=== PATIENT | female | born 1995 | race Caucasian/White ===

== ENCOUNTER 2016-06-19 20:57 | Emergency (ER) | payer MEDICAID ==
[2016-06-19] MEDS ORDERED: SODIUM CHLORIDE 0.9% 1,000 ML IV ONE ×2 (21:11→21:47)
[2016-06-19] MEDS ORDERED: ONDANSETRON 4 MG/2 ML VIAL IVP STA (21:35)
[2016-06-19] MEDS ORDERED: KETOROLAC 60 MG/2 ML VIAL IVP STA (21:35)
[2016-06-19] MEDS ORDERED: levoFLOXacin 250 MG TABLET PO STA (21:43)
[2016-06-19] MEDS ORDERED: KETOROLAC 30 MG/ML VIAL ONE (21:47)
[2016-06-19] MEDS ORDERED: ONDANSETRON 4 MG/2 ML VIAL ONE (21:47)
[2016-06-19] MEDS ORDERED: levoFLOXacin 250 MG TABLET PO ONE (21:47)
== END 2016-06-19 23:03 | disposition home or self-care (01) ==
DX: N12 Tubulo-interstitial nephritis, not specified as acute or chronic (principal); K21.9 Gastro-esophageal reflux disease without esophagitis
CPT/HCPCS: 36415; 71020; 80053; 80306; 81001; 81025; 83605; 83690; 84443; 85025; 87040; 87077; 87086; 87181; 96361; 96374; 96375; 99283; 99284; A9270

== ENCOUNTER 2016-06-22 14:15 | Outpatient (CLI) | payer MEDICAID | END 2016-06-22 14:16 | disposition home or self-care (01) | DX: Z11.3 Encounter for screening for infections with a predominantly sexual mode of transmission (principal) ==

== ENCOUNTER 2016-10-16 20:37 | Outpatient (CLI) | payer SELFPAY ==
[2016-10-16 19:15] LABS: H. PYLORI IGG ANTIBODY Negative (Negative); HPYLORI NEG QC Negative (Negative); HPYLORI POS QC POSITIVE (Positive)
[2016-10-16 19:16] LABS: BASOPHILS # (AUTO) 0.2 10^3/uL (0.0-0.1); BASOPHILS % (AUTO) 2.9 %; EOSINOPHILS % (AUTO) 0.2 %; HCT - HEMATOCRIT 38.4 % (37.0-47.0); HGB - HEMOGLOBIN 12.9 g/dL (12.0-16.0); LYMPHOCYTES # (AUTO) 1.1 10^3/uL (1.5-3.5); LYMPHOCYTES % (AUTO) 19.5 %; MEAN CORPUSCULAR HEMOGLOBIN 29.5 pg (27.0-31.0); MEAN CORPUSCULAR HGB CONC 33.6 g/dL (32.0-36.0); MEAN CORPUSCULAR VOLUME 87.9 fL (81.0-99.0); MEAN PLATELET VOLUME 8.5 fL (7.9-10.8); MONOCYTES # (AUTO) 0.4 10^3/uL (0.0-1.0); MONOCYTES % (AUTO) 7.4 %; NEUTROPHILS # (AUTO) 3.9 10^3/uL (1.5-6.6); NUCLEATED RED BLOOD CELLS AUTO 0.1 /100WBC; RED BLOOD COUNT 4.37 10^6/uL (4.20-5.40); RED CELL DISTRIBUTION WIDTH 13.6 % (12.0-15.0); UNCORRECTED WHITE BLOOD COUNT 5.5 x10^3/uL; WHITE BLOOD COUNT 5.5 x10^3/uL (4.8-10.8)
[2016-10-16 19:27] LABS: ALBUMIN/GLOBULIN RATIO 1.5 (1.0-2.2); BILIRUBIN,TOTAL 0.5 mg/dL (0.2-1.0); BUN - BLOOD UREA NITROGEN 14 mg/dL (6-20); CALCIUM 9.2 mg/dL (8.5-10.3); CARBON DIOXIDE - CO2 24 mmol/L (21-32); CHLORIDE 108 mmol/L (101-111); CHOL/HDL RATIO 2.7 (<4.4); CHOLESTEROL 141 mg/dL; CREATININE 0.7 mg/dL (0.4-1.0); GFR - MDRD 107 (>89); GLUCOSE 110 mg/dL (70-100); HDL CHOLESTEROL 53 mg/dL; LDL/HDL RATIO 1.2 (<4.4); POTASSIUM 4.2 mmol/L (3.5-5.0); SODIUM 139 mmol/L (135-145); TOTAL PROTEIN 7.7 g/dL (6.7-8.2); TRIGLYCERIDES 122 mg/dL; VLDL CHOLESTEROL 24 mg/dL
== END 2016-10-16 20:38 | disposition home or self-care (01) ==
LOC: LAB.N 20:37
PROVIDERS: ATTEND Physician Assistant
DX: M25.50 Pain in unspecified joint (principal)
CPT/HCPCS: 36415; 80050; 80061; 85651; 86200; 87339

== ENCOUNTER 2017-09-19 11:47 | Outpatient (CLI) | payer MEDICAID ==
[2017-09-19 19:00] LABS: BASOPHILS # (AUTO) 0.1 10^3/uL (0.0-0.1); BASOPHILS % (AUTO) 1.1 %; EOSINOPHILS # (AUTO) 0.1 10^3/uL (0.0-0.7); EOSINOPHILS % (AUTO) 1.7 %; HGB - HEMOGLOBIN 12.6 g/dL (12.0-16.0); LYMPHOCYTES # (AUTO) 1.4 10^3/uL (1.5-3.5); LYMPHOCYTES % (AUTO) 29.4 %; MEAN CORPUSCULAR HEMOGLOBIN 29.8 pg (27.0-31.0); MEAN CORPUSCULAR HGB CONC 33.3 g/dL (32.0-36.0); MEAN CORPUSCULAR VOLUME 89.3 fL (81.0-99.0); MEAN PLATELET VOLUME 8.4 fL (7.9-10.8); MONOCYTES # (AUTO) 0.4 10^3/uL (0.0-1.0); MONOCYTES % (AUTO) 9.7 %; NEUTROPHILS # (AUTO) 2.7 10^3/uL (1.5-6.6); NEUTROPHILS % (AUTO) 58.1 %; PLT - PLATELET COUNT 263 10^3/uL (130-450); RED BLOOD COUNT 4.22 10^6/uL (4.20-5.40); RED CELL DISTRIBUTION WIDTH 13.4 % (12.0-15.0); WHITE BLOOD COUNT 4.6 x10^3/uL (4.8-10.8)
[2017-09-19 19:29] LABS: ALBUMIN 4.1 g/dL (3.2-5.5); ALBUMIN/GLOBULIN RATIO 1.2 (1.0-2.2); ALKALINE PHOSPHATASE 59 IU/L (42-121); ALT ALANINE AMINOTRANSFERASE 18 IU/L (10-60); AST ASPARTATE AMINOTRANSFERASE 24 IU/L (10-42); BILIRUBIN,TOTAL 0.9 mg/dL (0.2-1.0); BUN - BLOOD UREA NITROGEN 11 mg/dL (6-20); CALCIUM 8.9 mg/dL (8.5-10.3); CARBON DIOXIDE - CO2 23 mmol/L (21-32); CHLORIDE 109 mmol/L (101-111); CREATININE 0.6 mg/dL (0.4-1.0); GFR - MDRD 126 (>89); GLUCOSE 84 mg/dL (70-100); SODIUM 138 mmol/L (135-145); TOTAL PROTEIN 7.4 g/dL (6.7-8.2); URIC ACID 7.3 mg/dL (2.6-7.2)
[2017-09-19 19:39] LABS: CRP - C-REACTIVE PROTEIN < 1.0 mg/dL (0-1.0)
[2017-09-19 20:08] LABS: RHEUMATOID FACTOR NEGATIVE (Negative)
== END 2017-09-19 11:48 | disposition home or self-care (01) ==
LOC: LAB.N 11:47
PROVIDERS: ATTEND Physician Assistant Medical
DX: R10.9 Unspecified abdominal pain (principal); R10.30 Lower abdominal pain, unspecified; K92.1 Melena; M25.50 Pain in unspecified joint; R76.0 Raised antibody titer; R82.99 Other abnormal findings in urine
CPT/HCPCS: 36415; 80053; 82274; 84550; 85025; 86140; 86200; 86430; 87045; 87046; 87493

== ENCOUNTER 2017-12-10 10:38 | Outpatient (CLI) | payer MEDICAID | END 2017-12-10 10:39 | disposition home or self-care (01) | LOC: LAB.R 10:38 | PROVIDERS: ATTEND Nurse Practitioner Obstetrics & Gynecology | DX: N89.8 Other specified noninflammatory disorders of vagina (principal); Z11.3 Encounter for screening for infections with a predominantly sexual mode of transmission | CPT/HCPCS: 87480; 87491; 87510; 87591; 87660 ==

== ENCOUNTER 2017-12-10 11:02 | Outpatient (CLI) | payer MEDICAID ==
[2017-12-11 13:46] LABS: HEPATITIS C ANTIBODY NON-REACTIVE (NON-REACTIVE)
[2017-12-11 13:47] LABS: HIV AG/AB 4TH GEN NON-REACTIVE (NON-REACTIVE)
[2017-12-12 13:08] LABS: HSV 1 IGG TYPE SPECIFIC AB <0.90 index; HSV 2 IGG TYPE SPECIFIC AB 2.91 index
== END 2017-12-10 11:03 | disposition home or self-care (01) ==
LOC: LAB 11:02
PROVIDERS: ATTEND Nurse Practitioner Obstetrics & Gynecology
DX: N89.8 Other specified noninflammatory disorders of vagina (principal); Z11.3 Encounter for screening for infections with a predominantly sexual mode of transmission
CPT/HCPCS: 36415; 81599; 86592; 86695; 86696; 86803; 87389; 87480; 87491; 87510; 87591; 87660

== ENCOUNTER 2018-05-13 08:00 | Outpatient (CLI) | payer MEDICAID | END 2018-05-13 23:59 | disposition home or self-care (01) | LOC: LAB.R 08:00 | PROVIDERS: ATTEND Obstetrics & Gynecology | DX: Z11.3 Encounter for screening for infections with a predominantly sexual mode of transmission (principal) | CPT/HCPCS: 87491; 87591 ==

== ENCOUNTER 2018-05-15 10:25 | Outpatient (CLI) | payer MEDICAID ==
[2018-05-16 16:25] LABS: HIV AG/AB 4TH GEN NON-REACTIVE (NON-REACTIVE)
[2018-05-27 09:43] LABS: HEPATITIS B SURFACE ANTIGEN NON-REACTIVE
== END 2018-05-15 10:26 | disposition home or self-care (01) ==
LOC: LAB 10:25
PROVIDERS: ATTEND Obstetrics & Gynecology
DX: A54.9 Gonococcal infection, unspecified (principal); Z11.3 Encounter for screening for infections with a predominantly sexual mode of transmission
CPT/HCPCS: 36415; 81599; 86317; 86592; 87340; 87389

== ENCOUNTER 2018-07-24 08:00 | Outpatient (CLI) | payer MEDICAID ==
[2018-07-25 19:41] LABS: CANDIDA GROUP DNA POSITIVE (NEGATIVE); CANDIDA KRUSEI DNA NEGATIVE (NEGATIVE); TRICHOMONAS VAGINALIS DNA NEGATIVE (NEGATIVE)
[2018-07-25 22:54] LABS: TRICHOMONAS VAGINALIS DNA NEGATIVE (NEGATIVE)
== END 2018-07-24 23:59 | disposition home or self-care (01) ==
LOC: LAB.R 08:00
PROVIDERS: ATTEND Registered Nurse
DX: Z32.01 Encounter for pregnancy test, result positive (principal); A54.00 Gonococcal infection of lower genitourinary tract, unspecified
CPT/HCPCS: 87491; 87591; 87661; 87801

== ENCOUNTER 2018-07-28 23:32 | Emergency (ER) | payer MEDICAID ==
--- NOTE | 2018-07-28 23:57 | ED Physician Documentation ---
PD HPI FEMALE - Stated complaint Stated Complaint: ABD PX - Chief complaint Chief Complaint: Abd Pain - History obtained from History obtained from: Patient, Family - History of Present Illness Timing - onset: How many weeks ago (2) Timing - duration: Weeks (2) Timing - details: Gradual onset, Still present Associated symptoms: Pelvic pain, Urinary frequency Contributing factors: Sexually active. 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 She has had urinary frequency and urgency but she has not had burning. She has had some nausea she has not had vomiting. Review of Systems Constitutional: denies: Fever Eyes: denies: Decreased vision Ears: denies: Ear pain Nose: denies: Rhinorrhea / runny nose, Congestion Throat: denies: Sore throat Cardiac: denies: Chest pain / pressure, Palpitations Respiratory: denies: Dyspnea, Cough GI: reports: Nausea. denies: Abdominal Pain, Vomiting : reports: Frequency. denies: Dysuria Skin: denies: Rash Musculoskeletal: denies: Neck pain, Back pain, Extremity pain Neurologic: denies: Generalized weakness, Focal weakness, Numbness PD PAST MEDICAL HISTORY - Past Medical History Past Medical History: No Cardiovascular: None Respiratory: None Neuro: None Endocrine/Autoimmune: None GI: GERD, Cholelithiasis : None HEENT: None Psych: None Musculoskeletal: None Derm: None - Past Surgical History Past Surgical History: Yes General: Cholecystectomy Ortho: Other - Present Medications Home Medications: Ambulatory Orders Medication Instructions Recorded Confirmed traMADol [Ultram] 50 - 100 mg PO Q6H PRN #20 tablet 10/05/15 Levofloxacin [Levaquin] 750 mg PO DAILY #4 tablet 06/19/16 Ondansetron Odt [Zofran] 4 mg TL Q6H PRN #14 tablet 06/19/16 - Allergies Allergies/Adverse Reactions: Allergies Allergy/AdvReac Type Severity Reaction Status Date / Time No Known Drug Allergies Allergy Verified 07/28/18 23:44 - Social History Does the pt smoke?: No Smoking Status: Never smoker Does the pt drink ETOH?: Yes Does the pt have substance abuse?: No - Immunizations Immunizations are current?: Yes - POLST Patient has POLST: No PD ED PE NORMAL - Vitals Vital signs reviewed: Yes (tachy and hypertensive ) - General General: Alert and oriented X 3, Well developed/nourished, Other (The patient appears nervous and shaky) - HEENT HEENT: Atraumatic, PERRL, EOMI - Neck Neck: Supple, no meningeal sign, No bony TTP - Cardiac Cardiac: RRR, No murmur - Respiratory Respiratory: No respiratory distress, Clear bilaterally - Abdomen Abdomen: Soft, Non tender - Back Back: No CVA TTP, No spinal TTP - Derm Derm: Normal color, No rash - Extremities Extremities: No deformity, No edema, No calf tenderness / cord - Neuro Neuro: Alert and oriented X 3, compress engineer 2-12 intact, No motor deficit, No sensory deficit, Normal speech Eye Opening: Spontaneous Motor: Obeys Commands Verbal: Oriented GCS Score: 15 - Psych Psych: Other (mood is apprehensive and the affect is labile ) Results - Vitals Vitals: Vital Signs - 24 hr 07/28/18 23:41 Temperature 36.6 C Heart Rate 125 H Respiratory 18 Rate Blood Pressure 129/92 H O2 Saturation 100 Oxygen O2 Source Room air - Labs Labs: Laboratory Tests 07/28/18 07/28/18 07/28/18 00:00 00:00 00:20 WBC 8.3 RBC 3.92 L Hgb 11.3 L Hct 33.8 L MCV 86.2 MCH 28.9 MCHC 33.5 RDW 14.3 Plt Count 257 MPV 7.4 L Neut # (Auto) 4.9 Lymph # (Auto) 2.3 [place] # (Auto) 0.9 Eos # (Auto) 0.0 Baso # (Auto) 0.1 Absolute Nucleated RBC 0.01 Nucleated RBC % 0.1 Sodium 137 Potassium 3.3 L Chloride 103 Carbon Dioxide 23 Anion Gap 11.0 BUN 9 Creatinine 0.5 Estimated GFR (MDRD) 154 Glucose 99 Calcium 9.1 Total Bilirubin 0.5 AST 30 ALT 23 Alkaline Phosphatase 61 Total Protein 7.3 Albumin 4.1 Globulin 3.2 Albumin/Globulin Ratio 1.3 Lipase 36 Urine Color YELLOW Urine Clarity CLEAR Urine pH 7.0 Ur Specific [place] <=1.005 Urine Protein NEGATIVE Urine Glucose (UA) NEGATIVE Urine Ketones NEGATIVE Urine Occult Blood NEGATIVE Urine Nitrite NEGATIVE Urine Bilirubin NEGATIVE Urine Urobilinogen 0.2 (NORMAL) Ur Leukocyte Esterase NEGATIVE Ur Microscopic Review NOT INDICATED Urine Culture Comments NOT INDICATED Urine HCG, Qual POSITIVE Procedures - Bedside sono Bedside sono by EMP: With use of bedside ultrasound the pelvis is imaged and there is a 7-week 3-day gestational sac present I am not able to see heart activity. Examination of the left kidney is without sonographic tenderness and no evidence of hydronephrosis. The right kidney is similar. PD MEDICAL DECISION MAKING - ED course Complexity details: reviewed results, re-evaluated patient, considered dif ferential, d/w patient, d/w family ED course: 23-year-old female has come to the emergency department tonight with a 2-week complaint of fatigue and pelvic discomfort. is discovered on bedside ultrasound on initial evaluation and the patient is quite teary-eyed. It appears evident that she is considering termination. I have discussed these with the patient and recommended she get some counseling prior to making any decisions. She does have a boyfriend who is in the [place] and is preparing to go on an extended deployment. I did discuss with the patient obtaining formal ultrasound and with shared decision making it was decided not to pursue this. She was found to be hypokalemic and was administered 20 mEq of potassium chloride. Departure - Departure Disposition: 01 Home, Self Care Clinical Impression: at early stage Condition: Stable Instructions: ED Preg Established Normal Sxs Follow-Up: Viraj Sherwood PA-C [Primary Care Provider] -
[2018-07-29 00:07] LABS: BASOPHILS # (AUTO) 0.1 10^3/uL (0.0-0.1); BASOPHILS % (AUTO) 0.7 %; EOSINOPHILS % (AUTO) 0.3 %; HGB - HEMOGLOBIN 11.3 g/dL (12.0-16.0); LYMPHOCYTES # (AUTO) 2.3 10^3/uL (1.5-3.5); LYMPHOCYTES % (AUTO) 28.1 %; MEAN CORPUSCULAR HEMOGLOBIN 28.9 pg (27.0-31.0); MEAN CORPUSCULAR HGB CONC 33.5 g/dL (32.0-36.0); MEAN CORPUSCULAR VOLUME 86.2 fL (81.0-99.0); MEAN PLATELET VOLUME 7.4 fL (7.9-10.8); MONOCYTES # (AUTO) 0.9 10^3/uL (0.0-1.0); MONOCYTES % (AUTO) 11.3 %; NEUTROPHILS # (AUTO) 4.9 10^3/uL (1.5-6.6); NEUTROPHILS % (AUTO) 59.6 %; PLT - PLATELET COUNT 257 10^3/uL (130-450); RED BLOOD COUNT 3.92 10^6/uL (4.20-5.40); RED CELL DISTRIBUTION WIDTH 14.3 % (12.0-15.0); WHITE BLOOD COUNT 8.3 x10^3/uL (4.8-10.8)
[2018-07-29 00:17] LABS: ALBUMIN 4.1 g/dL (3.2-5.5); ALBUMIN/GLOBULIN RATIO 1.3 (1.0-2.2); BILIRUBIN,TOTAL 0.5 mg/dL (0.2-1.0); CALCIUM 9.1 mg/dL (8.5-10.3); CREATININE 0.5 mg/dL (0.4-1.0); TOTAL PROTEIN 7.3 g/dL (6.7-8.2)
[2018-07-29 00:37] LABS: BILIRUBIN,URINE NEGATIVE (NEGATIVE); GLUCOSE, URINE (UA) NEGATIVE (NEGATIVE); KETONES,URINE (UA) NEGATIVE (NEGATIVE); LEUKOCYTE ESTERASE, URINE NEGATIVE (NEGATIVE); NITRITE,URINE NEGATIVE (NEGATIVE); OCCULT BLOOD,URINE NEGATIVE (NEGATIVE); PROTEIN,URINE NEGATIVE (NEGATIVE); UROBILINOGEN,URINE 0.2 (NORMAL) E.U./dL (NORMAL)
[2018-07-29 00:38] LABS: CLARITY,URINE CLEAR (CLEAR); HCG UR QUAL POSITIVE
[2018-07-29] MEDS ORDERED: POTASSIUM CHLORIDE 20 MEQ TABLET PO STA (01:01)
[2018-07-29 01:35] VITALS: BP 122/75
== END 2018-07-29 01:37 | disposition home or self-care (01) ==
LOC: ED 23:32
DX: O99.89 Other specified diseases and conditions complicating pregnancy, childbirth and the puerperium (principal); R39.15 Urgency of urination; R35.0 Frequency of micturition; R10.2 Pelvic and perineal pain; R11.0 Nausea; Z3A.01 Less than 8 weeks gestation of pregnancy
CPT/HCPCS: 36415; 80053; 81003; 81025; 83690; 85025; 99282; 99283; A9270; 81001; 87086

== ENCOUNTER 2018-08-07 10:51 | Outpatient (CLI) | payer MEDICAID ==
--- NOTE | 2018-08-07 12:52 | Ultrasound Report ---
Reason: TEST POSITIVE Procedure Date: 08/07/2018 Accession Number: [id number] / [id number] Procedure: US - OB First Trimester CPT Code: FULL RESULT: EXAM: FIRST TRIMESTER OBSTETRIC ULTRASOUND (Less than 11 weeks) EXAM DATE: 08/07/2018 12:05 PM. CLINICAL HISTORY: TEST POSITIVE. LMP: Unknown. COMPARISONS: None. TECHNIQUE: Transabdominal and transvaginal ultrasound examination with static image documentation. CLINICAL DATES: EGA 7 weeks 5 days with DERIAN 03/21/2019 based on LMP. ASSESSMENT: Gestational Sac: Single intrauterine. Mean gestational sac diameter: 28.2 mm = 7 weeks 6 days. Embryo: CRL (crown-rump length) 15.6 mm = 7 weeks 6 days. Cardiac activity: 177 beats per minute. Yolk sac: mm. Amniotic fluid: Not accurately assessed at this gestational age. Early placenta: Not visible at this gestational age. Other: No perigestational fluid collection demonstrated. MATERNAL STRUCTURES: Uterus: Anteverted. There is a small subchorionic hemorrhage measuring 23 x 14 x 10 mm in diameter. Cervix: Closed. Right Ovary/Adnexa: The ovary measures 1.9 x 1.2 x 1.5 cm, volume 0.7 cc. Benign-appearing dominant follicle follicular cyst measuring 1.6 x 0.7 x 1.3 cm diameter. Left Ovary/Adnexa: The ovary measures 5.8 x 5.7 x 4.7 cm, volume 81 cc. Benign-appearing anechoic left ovarian cyst measuring 5.3 x 4.5 x 4.7 cm. Free Fluid: None. Other: None. IMPRESSION: 1. Single viable intrauterine at EGA 7 weeks 6 days with DERIAN 03/20/2019 based on crown-rump length, which is concordant with clinical dates. 2. Assigned dating is DERIAN 7 weeks 6 days based on current ultrasound. 3. There is a small subchorionic hemorrhage as described above. RADIA
== END 2018-08-07 10:52 | disposition home or self-care (01) ==
LOC: DI 10:51
PROVIDERS: ATTEND Registered Nurse
DX: Z32.01 Encounter for pregnancy test, result positive (principal); O20.8 Other hemorrhage in early pregnancy; Z3A.01 Less than 8 weeks gestation of pregnancy
CPT/HCPCS: 76801; 76817

== ENCOUNTER 2018-08-20 10:31 | Outpatient (CLI) | payer MEDICAID ==
[2018-08-20 14:16] LABS: BILIRUBIN,URINE NEGATIVE (NEGATIVE); GLUCOSE, URINE (UA) NEGATIVE (NEGATIVE); KETONES,URINE (UA) NEGATIVE (NEGATIVE); LEUKOCYTE ESTERASE, URINE LARGE (NEGATIVE); NITRITE,URINE NEGATIVE (NEGATIVE); OCCULT BLOOD,URINE NEGATIVE (NEGATIVE); PROTEIN,URINE NEGATIVE (NEGATIVE); UROBILINOGEN,URINE 0.2 (NORMAL) E.U./dL (NORMAL)
[2018-08-20 14:26] LABS: BACTERIA,URINE Few /HPF (None Seen); CLARITY,URINE HAZY (CLEAR); RBC,URINE 0-5 /HPF (0-5); SQUAMOUS EPITHELIAL CELL,UR FEW Squamous (<= Few)
[2018-08-20 15:46] LABS: MUDS CUTOFF CONCENTRATIONS CUTOFF CONC BELOW:
[2018-08-20 16:04] LABS: AMPHETAMINE SCREEN,URINE NEGATIVE (NEGATIVE); BENZODIAZEPINES SCREEN, URINE NEGATIVE (NEGATIVE); COCAINE SCREEN URINE NEGATIVE (NEGATIVE); METHADONE SCREEN, URINE NEGATIVE (NEGATIVE); METHAMPHETAMINES SCREEN, URINE NEGATIVE (NEGATIVE); OPIATE SCREEN, URINE NEGATIVE (NEGATIVE); OXYCODONE SCREEN, URINE NEGATIVE (NEGATIVE); PROPOXYPHENE SCREEN, URINE NEGATIVE (NEGATIVE); TRICYCLIC ANTIDEPRESSANT,URINE NEGATIVE (NEGATIVE)
[2018-08-20 18:49] LABS: CANDIDA GROUP DNA POSITIVE (NEGATIVE); CANDIDA KRUSEI DNA NEGATIVE (NEGATIVE); TRICHOMONAS VAGINALIS DNA NEGATIVE (NEGATIVE)
== END 2018-08-20 23:59 | disposition home or self-care (01) ==
LOC: LAB.R 10:31
PROVIDERS: ATTEND Nurse Practitioner Obstetrics & Gynecology
DX: Z34.90 Encounter for supervision of normal pregnancy, unspecified, unspecified trimester (principal); N76.0 Acute vaginitis
CPT/HCPCS: 80306; 81001; 87086; 87252; 87661; 87801

== ENCOUNTER 2018-08-20 10:46 | Outpatient (CLI) | payer MEDICAID ==
[2018-08-20 11:53] LABS: BASOPHILS # (AUTO) 0.1 10^3/uL (0.0-0.1); BASOPHILS % (AUTO) 0.6 %; EOSINOPHILS % (AUTO) 0.2 %; HGB - HEMOGLOBIN 12.2 g/dL (12.0-16.0); LYMPHOCYTES # (AUTO) 1.3 10^3/uL (1.5-3.5); LYMPHOCYTES % (AUTO) 13.1 %; MEAN CORPUSCULAR HEMOGLOBIN 28.4 pg (27.0-31.0); MEAN CORPUSCULAR HGB CONC 32.1 g/dL (32.0-36.0); MEAN CORPUSCULAR VOLUME 88.6 fL (81.0-99.0); MEAN PLATELET VOLUME 9.4 fL (7.9-10.8); MONOCYTES # (AUTO) 0.6 10^3/uL (0.0-1.0); MONOCYTES % (AUTO) 6.1 %; NEUTROPHILS # (AUTO) 7.6 10^3/uL (1.5-6.6); NEUTROPHILS % (AUTO) 79.6 %; PLT - PLATELET COUNT 248 10^3/uL (130-450); RED BLOOD COUNT 4.29 10^6/uL (4.20-5.40); RED CELL DISTRIBUTION WIDTH 13.8 % (12.0-15.0); WHITE BLOOD COUNT 9.6 x10^3/uL (4.8-10.8)
[2018-08-21 13:58] LABS: HEPATITIS B SURFACE ANTIGEN NON-REACTIVE (NON-REACTIVE)
[2018-08-21 14:37] LABS: HIV AG/AB 4TH GEN NON-REACTIVE (NON-REACTIVE)
[2018-08-22 12:11] LABS: HSV 1 IGG TYPE SPECIFIC AB <0.90 index; HSV 2 IGG TYPE SPECIFIC AB 1.45 index
[2018-08-22 12:53] LABS: HCV RNA QNT <1.18 NOT DETECTED Log IU/mL (NOT DETECTED); HCV RNA QUANT RT PCR <15 NOT DETECTED IU/mL (NOT DETECTED)
== END 2018-08-20 10:47 | disposition home or self-care (01) ==
LOC: LAB 10:46
PROVIDERS: ATTEND Nurse Practitioner Obstetrics & Gynecology
DX: Z34.90 Encounter for supervision of normal pregnancy, unspecified, unspecified trimester (principal); Z36.89 Encounter for other specified antenatal screening
CPT/HCPCS: 36415; 81599; 85025; 86592; 86695; 86696; 86762; 86850; 86900; 86901; 87340; 87389; 87522

== ENCOUNTER 2018-09-25 | Outpatient (CLI) | payer MEDICAID | END 2018-09-25 23:59 | disposition home or self-care (01) | DX: R30.0 Dysuria (principal) ==

== ENCOUNTER 2018-10-15 11:33 | Outpatient (CLI) | payer MEDICAID | END 2018-10-15 11:34 | disposition home or self-care (01) | LOC: LAB 11:33 | PROVIDERS: ATTEND Nurse Practitioner Obstetrics & Gynecology | DX: Z36.8A Encounter for antenatal screening for other genetic defects (principal) | CPT/HCPCS: 36415; 81511; 81599 ==

== ENCOUNTER 2018-10-28 13:32 | Outpatient (CLI) | payer MEDICAID ==
--- NOTE | 2018-10-31 08:30 | Ultrasound Report ---
Reason: SUPERVISION OF Procedure Date: 10/28/2018 Accession Number: [id number] / [id number] Procedure: US - OB Detailed Eval CPT Code: FULL RESULT: EXAM: COMPLETE OBSTETRICAL ULTRASOUND EXAM DATE: 10/28/2018 04:42 PM. CLINICAL HISTORY: anatomic survey. Supervision of . COMPARISON: OB FIRST TRIMESTER 08/07/2018 11:06 AM. TECHNIQUE: Real-time sonographic evaluation of the fetus performed by the seam rubber. Multiple territory sales representative static images were saved for review. Additional transvaginal imaging to more accurately evaluate cervical length/placental position/etc. DATING: Established EGA 19 weeks 4 days with DERIAN 03/20/2019 based on first ultrasound. EGA 19 weeks 3 days with DERIAN 03/21/2019 based on LMP. EGA 19 weeks 3 days with DERIAN 03/21/2019 based on the current ultrasound. GENERAL EVALUATION Rai . Cardiac activity: 149 bpm. movement: Visualized. Presentation: Breech. Placenta: Anterior position. Low lying placenta, with margin 1.6 cm from the internal os . Umbilical cord: 3 vessel cord. Marginal placental cord origin. Amniotic fluid: Subjectively normal. MVP 3.2 cm. JASS 10.9 cm. BIOMETRY Bi-Parietal Diameter (BPD): 4.2 cm, 18 weeks 4 days. Head Circumference (HC): 16.9 cm, 19 weeks 4 days. Abdominal Circumference (AC): 15.5 cm, 20 weeks 4 days. Femur Length (FL): 3.1 cm, 19 weeks 4 days. Estimated Weight: 327 g, 78.9 percentile for 19 weeks 4 days. ANATOMY Suboptimal visualization of the cervical, thoracic, lumbar, and sacral spine due to position and anterior placenta. No visible abnormality. The intracranial structures, profile, face/nose/lips, 4 chamber heart and outflow tracts, stomach, abdominal wall and cord insertion, diaphragm, kidneys, bladder, and extremities were visualized and demonstrate no abnormality. MATERNAL STRUCTURES Uterus: Unremarkable. Cervix: Long and closed. Transabdominal length 3.3 cm. Right ovary/adnexa: Unremarkable. Left ovary/adnexa: Unremarkable. Free fluid: None. IMPRESSION: 1. Rai live intrauterine with gestational age 19 weeks 4 days based on first ultrasound. 2. Estimated weight is within expected limits for assigned dating. 3. Limited visualization of the spine without visible abnormality. Elsewhere normal anatomic survey. RADIA
== END 2018-10-28 13:33 | disposition home or self-care (01) ==
LOC: DI 13:32
PROVIDERS: ATTEND Obstetrics & Gynecology
DX: Z34.90 Encounter for supervision of normal pregnancy, unspecified, unspecified trimester (principal)
CPT/HCPCS: 76811

== ENCOUNTER 2018-11-24 23:54 | Outpatient (CLI) | payer MEDICAID ==
[2018-11-25 00:37] LABS: RUPTURE OF MEMBRANES PLUS NEGATIVE (NEGATIVE)
[2018-11-25 00:50] VITALS: BP 120/62
--- NOTE | 2018-11-25 01:50 | Ultrasound Report ---
Reason: leaking fluid at 23.3 weeks gest. age Procedure Date: 11/25/2018 Accession Number: [id number] / [id number] Procedure: US - OB Limited CPT Code: FULL RESULT: EXAM: LIMITED OBSTETRICAL ULTRASOUND EXAM DATE: 11/25/2018 01:26 AM CLINICAL HISTORY: Leaking fluid at 23.3 weeks gestational age. COMPARISON: OB DETAILED EVAL 10/28/2018 1:51 PM. TECHNIQUE: Real-time sonographic evaluation of the fetus performed by the bioinformatics analyst. Multiple telesales representative static images were saved for review. Additional transvaginal imaging to more accurately evaluate cervical length/placental position/etc. DATING: Established EGA 23 weeks 3 days with DERIAN 03/21/2019. GENERAL EVALUATION Rai . Cardiac activity: 149 bpm. movement: Visualized. Presentation: Cephalic. Placenta: Anterior position. No evidence of previa. Amniotic fluid: Normal. JASS 14.0 cm. MVP 4.5 cm. Detailed anatomic assessment was not performed on this examination. There is no significant maternal adnexal abnormality noted. Cervix appears long and closed measuring 4.1 cm. IMPRESSION: 1. Single live intrauterine gestation. 2. Normal amniotic fluid. RADIA
--- NOTE | 2018-12-01 00:39 | PROCEDURE REPORT ---
- HPI Diagnosis/Indication for NST: Decreased movement Current EDU 03/21/19 Gestation 23 Weeks and 3 Days 1 Para 0 Vital Signs Temperature 98 F 11/25/18 00:41 Heart Rate 108 H 11/25/18 00:41 Respiratory Rate 18 11/25/18 00:41 Blood Pressure 120/62 11/25/18 00:41 O2 Saturation 100 11/25/18 00:41 Temperature 98 F 11/25/18 00:41 Heart Rate 108 H 11/25/18 00:41 Respiratory Rate 18 11/25/18 00:41 Blood Pressure 120/62 11/25/18 00:41 O2 Saturation 100 11/25/18 00:41 - NST Procedure FHT in 140s - Results and Plan Findings/Impression: Patient is a 23-year-old at 23 and 3 weeks estimated gestational age who presents with decreased movement. NST was not indicated given previable gestational age. tracing did show appropriate heart rate. Bedside ultrasound was performed for patient reassurance. Appropriate activity was observed via ultrasound. Plan: Patient was reassured with regard to viability. Reviewed kick accounts with the caveat that kick counts are usually not initiated until 28 weeks estimated gestational age. Patient was discharged home A total of 30 minutes was spent with patient of which more than 50% was spent in [id number] membership counselor.
== END 2018-11-25 02:38 | disposition home or self-care (01) ==
LOC: WFO 23:54 → FBP 23:59 → WFO 11-25 02:38
PROVIDERS: ATTEND Obstetrics & Gynecology
DX: O36.8120 Decreased fetal movements, second trimester, not applicable or unspecified (principal); Z3A.23 23 weeks gestation of pregnancy
CPT/HCPCS: 76815; 84112; 99213

== ENCOUNTER 2019-01-02 09:35 | Outpatient (CLI) | payer MEDICAID ==
[2019-01-02 11:19] LABS: HGB - HEMOGLOBIN 9.9 g/dL (12.0-16.0); MEAN CORPUSCULAR HEMOGLOBIN 29.5 pg (27.0-31.0); MEAN CORPUSCULAR HGB CONC 33.2 g/dL (32.0-36.0); MEAN CORPUSCULAR VOLUME 88.7 fL (81.0-99.0); MEAN PLATELET VOLUME 9.1 fL (7.9-10.8); RED BLOOD COUNT 3.36 10^6/uL (4.20-5.40); RED CELL DISTRIBUTION WIDTH 12.5 % (12.0-15.0); WHITE BLOOD COUNT 11.7 x10^3/uL (4.8-10.8)
== END 2019-01-02 09:36 | disposition home or self-care (01) ==
LOC: LAB 09:35
PROVIDERS: ATTEND Nurse Practitioner Obstetrics & Gynecology
DX: Z36.89 Encounter for other specified antenatal screening (principal)
CPT/HCPCS: 36415; 82950; 85027; 86850

== ENCOUNTER 2019-01-19 08:00 | Outpatient (CLI) | payer MEDICAID ==
[2019-01-19 19:38] LABS: CANDIDA GROUP DNA NEGATIVE (NEGATIVE); CANDIDA KRUSEI DNA NEGATIVE (NEGATIVE); TRICHOMONAS VAGINALIS DNA NEGATIVE (NEGATIVE)
== END 2019-01-19 23:59 | disposition home or self-care (01) ==
LOC: LAB.R 08:00
PROVIDERS: ATTEND Nurse Practitioner Obstetrics & Gynecology
DX: N76.0 Acute vaginitis (principal)
CPT/HCPCS: 87661; 87801

== ENCOUNTER 2019-01-27 19:10 | Outpatient (CLI) | payer MEDICAID ==
--- NOTE | 2019-02-02 13:06 | Ultrasound Report ---
Reason: LOW LYING PLACENTA Procedure Date: 01/27/2019 Accession Number: [id number] / [id number] Procedure: US - OB F/U or Repeat CPT Code: Final Report FULL RESULT: EXAM: FOLLOW-UP OBSTETRICAL ULTRASOUND EXAM DATE: 01/27/2019 10:00 PM. CLINICAL HISTORY: Low lying placenta. COMPARISON: OB LIMITED 11/25/2018 12:44 AM OB DETAILED EVAL 10/28/2018 1:51 PM. TECHNIQUE: Real-time sonographic evaluation of the fetus performed by the lease picker. Multiple international account representative static images were saved for review. DATING: Established EGA 32 weeks 3 days with DERIAN 03/21/2019 based on LMP. GENERAL EVALUATION Rai . Cardiac activity: 162 bpm. movement: Visualized. Presentation: Cephalic. Placenta: Anterior position. Amniotic fluid: Normal. JASS 13.4 cm. MVP 4.6 cm. ANATOMY Limited visualization of the spine due to advanced gestational age with no definite abnormality seen. MATERNAL STRUCTURES Placental margin is greater than 4.5 cm from the endocervix, not low-lying. The cervix is long and closed with a length of 5.3 cm transabdominally. IMPRESSION: 1. Rai live intrauterine with gestational age 32 weeks 3 days based on LMP. 2. Normal relationship between placenta and cervix. 3. Limited visualization of spine due to advanced gestational age. RADIA
== END 2019-01-27 19:11 | disposition home or self-care (01) ==
LOC: DI 19:10
PROVIDERS: ATTEND Nurse Practitioner Obstetrics & Gynecology
DX: O44.03 Complete placenta previa NOS or without hemorrhage, third trimester (principal); Z3A.32 32 weeks gestation of pregnancy
CPT/HCPCS: 76816

== ENCOUNTER 2019-02-03 11:43 | Outpatient (CLI) | payer MEDICAID | END 2019-02-03 11:44 | disposition critical access hospital (66) | LOC: EMS 11:43 | PROVIDERS: ATTEND Surgery | DX: O99.89 Other specified diseases and conditions complicating pregnancy, childbirth and the puerperium (principal); R55 Syncope and collapse; Z3A.34 34 weeks gestation of pregnancy | CPT/HCPCS: A0425; A0429; A0999 ==

== ENCOUNTER 2019-02-03 12:07 | Outpatient (CLI) | payer MEDICAID ==
[2019-02-03 12:24] VITALS: BP 130/77
--- NOTE | 2019-02-03 12:39 | PROCEDURE REPORT ---
- HPI Diagnosis/Indication for NST: Other (Low heartbeat noted at another clinic) Current EDU 03/21/19 Gestation 33 Weeks and 3 Days 1 Para 0 Vital Signs Temperature 37.0 C 02/03/19 12:13 Heart Rate 92 02/03/19 12:13 Respiratory Rate 20 02/03/19 12:13 Blood Pressure 130/77 02/03/19 12:13 O2 Saturation 100 02/03/19 12:13 Temperature 37.0 C 02/03/19 12:13 Heart Rate 92 02/03/19 12:13 Respiratory Rate 20 02/03/19 12:13 Blood Pressure 130/77 02/03/19 12:13 O2 Saturation 100 02/03/19 12:13 The patient had gone to the care center today. They were trying to teach someone how to do an ultrasound and laid her flat for a long period of time. She became quite dizzy and they sat her up and she threw up they later back down again and again she became some still somewhat symptomatic. They checked the heart tones which they said were 40 by ultrasound. Again somebody was being trained to do this. We told them to send her down to us immediately. They responded that they would still do a few more things and then send her down. They were again admonished to send her down immediately by ambulance if possible. Again they stated that they would send her down after a while that they felt that she was fine at that point. They gave her some juice and the heart tones were in the 160s.It is also of note that the patient had not eaten or had anything to drink in quite a while prior to this happening. - NST Procedure The NST is reactive. This was read on 02/03/2019. - Results and Plan Findings/Impression: Intrauterine at 33 weeks and 3 days gestation Plan: I do believe the patient suffered a hypotensive episode after laying on her back for so long and then having the symptoms that she stated that she had.The strip looks entirely normal at this time. The patient is without complaint. We are sending her home. She will just follow-up with her regular obstetrical visit.
== END 2019-02-03 13:15 | disposition home or self-care (01) ==
LOC: WFO 12:07 → FBP 12:08 → WFO 13:15
PROVIDERS: ATTEND Obstetrics & Gynecology
DX: O36.8330 Maternal care for abnormalities of the fetal heart rate or rhythm, third trimester, not applicable or unspecified (principal); Z3A.33 33 weeks gestation of pregnancy
CPT/HCPCS: 59025; 99213

== ENCOUNTER 2019-02-09 18:29 | Outpatient (CLI) | payer MEDICAID ==
[2019-02-09 21:31] LABS: BILIRUBIN,URINE NEGATIVE (NEGATIVE); GLUCOSE, URINE (UA) NEGATIVE (NEGATIVE); KETONES,URINE (UA) NEGATIVE (NEGATIVE); LEUKOCYTE ESTERASE, URINE NEGATIVE (NEGATIVE); NITRITE,URINE NEGATIVE (NEGATIVE); OCCULT BLOOD,URINE NEGATIVE (NEGATIVE); PROTEIN,URINE NEGATIVE (NEGATIVE); UROBILINOGEN,URINE 0.2 (NORMAL) E.U./dL (NORMAL)
[2019-02-09 21:32] LABS: CLARITY,URINE CLEAR (CLEAR)
[2019-02-09 21:41] LABS: BACTERIA,URINE Moderate /HPF (None Seen); RBC,URINE None Seen /HPF (0-5); SQUAMOUS EPITHELIAL CELL,UR MOD Squamous (<= Few)
--- NOTE | 2019-02-09 22:20 | PROVIDER PROGRESS NOTE ---
- HPI Current : Current EDU 03/21/19 Gestation 34 Weeks and 2 Days 1 Para 0 Vital Signs Temperature 98.2 F 02/09/19 18:41 Heart Rate 115 H 02/09/19 18:41 Respiratory Rate 02/09/19 18:41 Blood Pressure 132/80 H 02/09/19 18:41 O2 Saturation 100 02/09/19 18:41 Temperature 98.2 F 02/09/19 18:41 Heart Rate 115 H 02/09/19 18:41 Respiratory Rate 02/09/19 18:41 Blood Pressure 132/80 H 02/09/19 18:41 O2 Saturation 100 02/09/19 18:41 - Procedures OB Procedure Performed: NST Diagnosis/Indication for NST: labor NST Procedure: NST Procedure Start Time 12:06 Stop Time 13:13 Service Date of procedure: 02/09/19 Procedure Details: EFM 150 mod cassandra 15x15 accels no decels TOCO: quiet FFN neg UA wnl SVE: /70/-3 per RN exam Findings: Non-threatening SVE per RN exam Neg FFN Cat I tracing Minimal to no uteirne activity on tocometry - Plan Plan: Warning signs reviewed. Discharge to home.
[2019-02-09 23:18] VITALS: BP 121/69
[2019-02-11 20:36] LABS: CANDIDA GROUP DNA NEGATIVE (NEGATIVE); CANDIDA KRUSEI DNA NEGATIVE (NEGATIVE); TRICHOMONAS VAGINALIS DNA NEGATIVE (NEGATIVE)
== END 2019-02-09 22:35 | disposition home or self-care (01) ==
LOC: WFO 18:29 → FBP 18:31 → WFO 22:35
PROVIDERS: ATTEND Obstetrics & Gynecology
DX: Z34.03 Encounter for supervision of normal first pregnancy, third trimester (principal); Z3A.34 34 weeks gestation of pregnancy
CPT/HCPCS: 81001; 82731; 87086; 87661; 87801; 99213

== ENCOUNTER 2019-02-21 16:42 | Outpatient (CLI) | payer MEDICAID ==
--- NOTE | 2019-02-22 04:09 | Ultrasound Report ---
Reason: UTERINE SIZE DATE DISCREPANCY THIRD TRIMESTER Procedure Date: 02/21/2019 Accession Number: [id number] / [id number] Procedure: US - OB F/U or Repeat CPT Code: Final Report FULL RESULT: EXAM: FOLLOW-UP OBSTETRICAL ULTRASOUND EXAM DATE: 02/21/2019 05:30 PM. CLINICAL HISTORY: UTERINE SIZE DATE DISCREPANCY THIRD TRIMESTER. COMPARISON: OB F/U OR REPEAT 01/27/2019 8:33 PM. TECHNIQUE: Real-time sonographic evaluation of the fetus performed by the firer locomotive crane. Multiple sales and marketing representative static images were saved for review. DATING: Established EGA 36 weeks 0 days with DERIAN 03/21/2019 based on LMP. EGA 37 weeks 2 days with DERIAN 03/12/2019 based on the current ultrasound. GENERAL EVALUATION Rai . Cardiac activity: 150 bpm. movement: Visualized. Presentation: Cephalic. Placenta: Anterior position. Amniotic fluid: Normal. JASS 8.2 cm. MVP 4.2 cm. BIOMETRY Bi-Parietal Diameter (BPD): 9.0 cm, 36 weeks 2 days Head Circumference (HC): 32.0 cm, 36 weeks 1 day Abdominal Circumference (AC): 35.8 cm, 39 weeks 5 days Femur Length (FL): 7.2 cm, 36 weeks 5 days Estimated Weight: 3425 g, 95th percentile for 36 weeks 0 days. IMPRESSION: 1. Rai live intrauterine with gestational age 36 weeks 0 days based on LMP. 2. Estimated weight at the 95th percentile for assigned dating. 3. Fetus measuring 1 week 2 days further along than anticipated. RADIA
== END 2019-02-21 16:43 | disposition home or self-care (01) ==
LOC: DI 16:42
PROVIDERS: ATTEND Nurse Practitioner Obstetrics & Gynecology
DX: O26.843 Uterine size-date discrepancy, third trimester (principal); Z3A.36 36 weeks gestation of pregnancy
CPT/HCPCS: 76816

== ENCOUNTER 2019-02-26 07:00 | Outpatient (CLI) | payer MEDICAID ==
[2019-02-27 21:17] LABS: TRICHOMONAS VAGINALIS DNA NEGATIVE (NEGATIVE)
== END 2019-02-26 23:59 | disposition home or self-care (01) ==
LOC: LAB.R 07:00
PROVIDERS: ATTEND Obstetrics & Gynecology
DX: Z34.00 Encounter for supervision of normal first pregnancy, unspecified trimester (principal)
CPT/HCPCS: 87491; 87591; 87661; 87797

== ENCOUNTER 2019-02-27 14:16 | Outpatient (CLI) | payer MEDICAID ==
--- NOTE | 2019-02-27 15:08 | PROVIDER PROGRESS NOTE ---
- HPI Chief Complaint: Pain, non-labor Current : Current EDU 03/21/19 Gestation 36 Weeks and 6 Days 1 Para 0 Vital Signs Temperature 98.1 F 02/27/19 14:25 Heart Rate 108 H 02/27/19 14:25 Respiratory Rate 02/27/19 14:25 Blood Pressure 134/91 H 02/27/19 14:25 O2 Saturation 100 02/27/19 14:25 Temperature 98.1 F 02/27/19 14:25 Heart Rate 108 H 02/27/19 14:25 Respiratory Rate 02/27/19 14:25 Blood Pressure 134/91 H 02/27/19 14:25 O2 Saturation 100 02/27/19 14:25 23yo G1 at 36 6/7 weeks who presents with c/o sharp groin pain, mild cramping for the past few days. Nausea for about a month (since started iron), no vomiting, eating her usual diet including regular meals and snacks. No contractions or bleeding, no fluid leak. Reports normal activity. Also reports headache every day for most of her that resolves with tylenol. Started on iron for anemia one month ago, constipated since then. - Exam No distress, morbidly obese RESP/ CTA CV/ RRR 2/6 systolic murmur along LSB ABD/ Obese, gravid, soft, non-tender, no CVAT. NST/ Reactive. Rare, mild contraction VE deferred US vtx, anterior placenta, active fetus - Procedures OB Procedure Performed: NST Diagnosis/Indication for NST: Other (See above) NST Procedure: NST Procedure Start Time 12:06 Stop Time 13:13 Findings: 23yo G1 at 36+6 with anemia, on iron. No evidence of PTL Nausea likely related to PO iron as is her cramping and constipation. H/O HSV, no outbreaks this - Plan Plan: Plan CBC; IV iron if indicated UA, CMP secondary to borderline BPs and nausea. Hydration if indicated H/O HSV; start acyclovir prophylaxis H/O GBS UTI; rpt test not indicated H/O GC, neg GÓMEZ
[2019-02-27 15:11] LABS: BILIRUBIN,URINE NEGATIVE (NEGATIVE); GLUCOSE, URINE (UA) NEGATIVE (NEGATIVE); KETONES,URINE (UA) NEGATIVE (NEGATIVE); LEUKOCYTE ESTERASE, URINE NEGATIVE (NEGATIVE); NITRITE,URINE NEGATIVE (NEGATIVE); OCCULT BLOOD,URINE NEGATIVE (NEGATIVE); PH,URINE 6.5 PH (5.0-7.5); PROTEIN,URINE NEGATIVE (NEGATIVE); UROBILINOGEN,URINE 0.2 (NORMAL) E.U./dL (NORMAL)
[2019-02-27 15:16] LABS: BASOPHILS % (AUTO) 0.4 %; EOSINOPHILS % (AUTO) 0.4 %; HGB - HEMOGLOBIN 12.9 g/dL (12.0-16.0); LYMPHOCYTES # (AUTO) 1.2 10^3/uL (1.5-3.5); LYMPHOCYTES % (AUTO) 14.1 %; MEAN CORPUSCULAR HEMOGLOBIN 30.1 pg (27.0-31.0); MEAN CORPUSCULAR HGB CONC 33.2 g/dL (32.0-36.0); MEAN CORPUSCULAR VOLUME 90.7 fL (81.0-99.0); MONOCYTES # (AUTO) 0.8 10^3/uL (0.0-1.0); MONOCYTES % (AUTO) 9.7 %; NEUTROPHILS # (AUTO) 6.3 10^3/uL (1.5-6.6); NEUTROPHILS % (AUTO) 74.8 %; PLT - PLATELET COUNT 279 10^3/uL (130-450); RED BLOOD COUNT 4.29 10^6/uL (4.20-5.40); RED CELL DISTRIBUTION WIDTH 15.9 % (12.0-15.0); WHITE BLOOD COUNT 8.4 x10^3/uL (4.8-10.8)
[2019-02-27 15:17] LABS: CLARITY,URINE CLEAR (CLEAR)
[2019-02-27 15:31] LABS: ALBUMIN 3.1 g/dL (3.2-5.5); ALBUMIN/GLOBULIN RATIO 0.9 (1.0-2.2); BILIRUBIN,TOTAL 0.5 mg/dL (0.2-1.0); CREATININE 0.5 mg/dL (0.4-1.0); TOTAL PROTEIN 6.4 g/dL (6.7-8.2)
[2019-02-27 15:31] LABS: BACTERIA,URINE Few /HPF (None Seen); RBC,URINE 0-5 /HPF (0-5); SQUAMOUS EPITHELIAL CELL,UR MOD Squamous (<= Few)
--- NOTE | 2019-02-27 16:25 | PROVIDER PROGRESS NOTE ---
Subjective - Prog Note Date Prog Note Date: 02/27/19 Prog Note Time: 16:24 - Subjective Subjective: Reassured, feeling well. Labs normal, rpt BP's in normal range. Plan DC home. Start acyclovir for prophylaxis. Continue vits and iron. F/U w primary OB in 3-5 days Objective - Vital Signs/Intake & Output Vital Signs: Vital Signs x48h Temp Pulse Resp BP Pulse Ox 02/27/19 14:25 98.1 F 108 H 20 134/91 H 100 - Lab Results Fish Bones: 02/27/19 15:12 02/27/19 15:12 Other Labs: Lab Results x24hrs 02/27/19 02/27/19 02/27/19 Range/Units 15:12 15:12 14:57 WBC 8.4 (4.8-10.8) x10^3/uL RBC 4.29 (4.20-5.40) 10^6/uL Hgb 12.9 (12.0-16.0) g/dL Hct 38.9 (37.0-47.0) % MCV 90.7 (81.0-99.0) fL MCH 30.1 (27.0-31.0) pg MCHC 33.2 (32.0-36.0) g/dL RDW 15.9 H (12.0-15.0) % Plt Count 279 (130-450) 10^3/uL MPV 9.0 (7.9-10.8) fL Neut # (Auto) 6.3 (1.5-6.6) 10^3/uL Lymph # (Auto) 1.2 L (1.5-3.5) 10^3/uL [place] # (Auto) 0.8 (0.0-1.0) 10^3/uL Eos # (Auto) 0.0 (0.0-0.7) 10^3/uL Baso # (Auto) 0.0 (0.0-0.1) 10^3/uL Absolute Nucleated RBC 0.00 x10^3/uL Nucleated RBC % 0.0 /100WBC Sodium 135 (135-145) mmol/L Potassium 4.0 (3.5-5.0) mmol/L Chloride 105 (101-111) mmol/L Carbon Dioxide 22 (21-32) mmol/L Anion Gap 8.0 (6-13) BUN 8 (6-20) mg/dL Creatinine 0.5 (0.4-1.0) mg/dL Estimated GFR (MDRD) 154 (>89) Glucose 85 (70-100) mg/dL Calcium 9.0 (8.5-10.3) mg/dL Total Bilirubin 0.5 (0.2-1.0) mg/dL AST 21 (10-42) IU/L ALT 20 (10-60) IU/L Alkaline Phosphatase 130 H (42-121) IU/L Total Protein 6.4 L (6.7-8.2) g/dL Albumin 3.1 L (3.2-5.5) g/dL Globulin 3.3 (2.1-4.2) g/dL Albumin/Globulin Ratio 0.9 L (1.0-2.2) Urine Color YELLOW Urine Clarity CLEAR (CLEAR) Urine pH 6.5 (5.0-7.5) PH Ur Specific [place] 1.025 (1.002-1.030) Urine Protein NEGATIVE (NEGATIVE) mg/dL Urine Glucose (UA) NEGATIVE (NEGATIVE) mg/dL Urine Ketones NEGATIVE (NEGATIVE) mg/dL Urine Occult Blood NEGATIVE (NEGATIVE) Urine Nitrite NEGATIVE (NEGATIVE) Urine Bilirubin NEGATIVE (NEGATIVE) Urine Urobilinogen 0.2 (NORMAL) (NORMAL) E.U./dL Ur Leukocyte Esterase NEGATIVE (NEGATIVE) Urine RBC 0-5 (0-5) /HPF Urine WBC 0-3 (0-5) /HPF Ur Squamous Epith Cells MOD Squamous H (<= Few) Urine Bacteria Few (None Seen) /HPF Urine Culture Comments NOT INDICATED
[2019-02-27 16:32] VITALS: BP 127/77
== END 2019-02-27 16:30 | disposition home or self-care (01) ==
LOC: WFO 14:16 → FBP 14:18 → WFO 16:30
PROVIDERS: ATTEND Obstetrics & Gynecology
DX: O99.89 Other specified diseases and conditions complicating pregnancy, childbirth and the puerperium (principal); R10.30 Lower abdominal pain, unspecified; R11.0 Nausea; K59.00 Constipation, unspecified; O99.013 Anemia complicating pregnancy, third trimester; Z3A.36 36 weeks gestation of pregnancy; O99.213 Obesity complicating pregnancy, third trimester; E66.01 Morbid (severe) obesity due to excess calories; O98.513 Other viral diseases complicating pregnancy, third trimester; B00.9 Herpesviral infection, unspecified; Z79.899 Other long term (current) drug therapy
CPT/HCPCS: 36415; 80053; 81001; 85025; 87086; 99213

== ENCOUNTER 2019-03-03 17:13 | Outpatient (CLI) | payer MEDICAID ==
--- NOTE | 2019-03-04 17:59 | Ultrasound Report ---
Reason: OLIGOHYDRAMINOS, SIZE DATE DISCREPANCY 3RD TRIMEST Procedure Date: 03/03/2019 Accession Number: [id number] / [id number] Procedure: US - OB F/U or Repeat CPT Code: Final Report FULL RESULT: EXAM: FOLLOW-UP OBSTETRICAL ULTRASOUND EXAM DATE: 03/03/2019 05:39 PM. CLINICAL HISTORY: Oligohydramnios. Size/date discrepancy. 3rd trimester. COMPARISON: OB F/U OR REPEAT 02/21/2019 4:45 PM. TECHNIQUE: Real-time sonographic evaluation of the fetus performed by the visual arts teacher. Multiple sales account representative static images were saved for review. DATING: Established EGA 37 weeks 3 days with DERIAN 03/21/2019 based on LMP. EGA 37 weeks 4 days with DERIAN 03/20/2019 based on initial ultrasound 08/07/2018. EGA 37 weeks 4 days with DERIAN 03/20/2019 based on the current ultrasound. GENERAL EVALUATION Rai . Cardiac activity: 129 bpm. movement: Visualized. Presentation: Cephalic. Placenta: Anterior position. Amniotic fluid: Normal. JASS 15.3 cm. MVP 7.6 cm. BIOMETRY Bi-Parietal Diameter (BPD): 9.3 cm, 37 weeks 6 days. Head Circumference (HC): 33.7 cm, 38 weeks 4 days. Abdominal Circumference (AC): 34.0 cm, 37 weeks 6 days. Femur Length (FL): 7.0 cm, 36 weeks 0 days. Estimated Weight: 3232 g, 61st percentile for 37 weeks 3 days. IMPRESSION: 1. Rai live intrauterine with gestational age 37 weeks 3 days based on LMP. 2. Estimated weight is within expected limits for assigned dating. 3. Normal interval growth compared to 02/21/2019. RADIA
== END 2019-03-03 17:14 | disposition home or self-care (01) ==
LOC: DI 17:13
PROVIDERS: ATTEND Obstetrics & Gynecology
DX: O26.843 Uterine size-date discrepancy, third trimester (principal); Z3A.37 37 weeks gestation of pregnancy
CPT/HCPCS: 76816

== ENCOUNTER 2019-03-13 14:35 | Outpatient (CLI) | payer MEDICAID | END 2019-03-13 14:36 | disposition home or self-care (01) | LOC: LAB 14:35 | PROVIDERS: ATTEND Nurse Practitioner Obstetrics & Gynecology | DX: R51 Headache (principal) | CPT/HCPCS: 36415; 80053; 82570; 84156; 84550; 85027 ==

== ENCOUNTER 2019-03-16 17:20 | Outpatient (CLI) | payer MEDICAID ==
[2019-03-16 17:52] VITALS: BP 131/75
[2019-03-16 18:26] LABS: BASOPHILS % (AUTO) 0.3 %; EOSINOPHILS % (AUTO) 0.4 %; HGB - HEMOGLOBIN 12.4 g/dL (12.0-16.0); LYMPHOCYTES # (AUTO) 1.2 10^3/uL (1.5-3.5); LYMPHOCYTES % (AUTO) 15.3 %; MEAN CORPUSCULAR VOLUME 90.8 fL (81.0-99.0); MEAN PLATELET VOLUME 9.1 fL (7.9-10.8); MONOCYTES # (AUTO) 0.9 10^3/uL (0.0-1.0); MONOCYTES % (AUTO) 10.8 %; NEUTROPHILS # (AUTO) 5.8 10^3/uL (1.5-6.6); NEUTROPHILS % (AUTO) 72.7 %; PLT - PLATELET COUNT 241 10^3/uL (130-450); RED BLOOD COUNT 4.14 10^6/uL (4.20-5.40); RED CELL DISTRIBUTION WIDTH 14.8 % (12.0-15.0)
[2019-03-16 18:46] LABS: ALBUMIN 2.9 g/dL (3.2-5.5); ALBUMIN/GLOBULIN RATIO 0.9 (1.0-2.2); BILIRUBIN,TOTAL 0.5 mg/dL (0.2-1.0); CALCIUM 8.5 mg/dL (8.5-10.3); CREATININE 0.4 mg/dL (0.4-1.0); TOTAL PROTEIN 6.1 g/dL (6.7-8.2); URIC ACID 6.2 mg/dL (2.6-7.2)
[2019-03-16 18:47] LABS: PROTEIN/CREATININE RATIO,URINE 0.1 (<=0.2)
[2019-03-16 19:15] LABS: RUPTURE OF MEMBRANES PLUS NEGATIVE (NEGATIVE)
--- NOTE | 2019-03-17 15:12 | PROVIDER PROGRESS NOTE ---
- HPI Chief Complaint: Headache Current : Current EDU 03/21/19 Gestation 39 Weeks and 2 Days 1 Para 0 Vital Signs Temperature 36.9 C 03/16/19 17:50 Heart Rate 98 03/16/19 17:50 Respiratory Rate 18 03/16/19 17:50 Blood Pressure 131/75 H 03/16/19 17:50 O2 Saturation 99 03/16/19 17:50 Temperature 36.9 C 03/16/19 17:50 Heart Rate 98 03/16/19 17:50 Respiratory Rate 18 03/16/19 17:50 Blood Pressure 131/75 H 03/16/19 17:50 O2 Saturation 99 03/16/19 17:50 - Procedures OB Procedure Performed: NST NST Procedure: NST Procedure Start Time 12:06 Stop Time 13:13 - Plan Plan: HPI: This 23yo @ 39.2wks gestation presents to [facility] with c/o contractions and concern for her membranes possibly being ruptured. In addition she reports persistent headache for the past several days and spots in her visual field for several days. She denies vaginal bleeding. She reports +FM. NST performed 03/16/2019 Read 03/17/2019 NST reactive. Baseline 150s, moderate variability, + accels, no decels Infrequent contractions palpate mild with soft resting tone SVE closed/thick/high, posterior BPs consistently WNL (130s/60s) PIH labs WNL ROM plus negative Plan: Pt released home with precautions. Advised her to keep her appt 03/18/2019 or present sooner PRN. FINAL DIAGNOSIS: False labor >39wks gestation
== END 2019-03-16 19:45 | disposition home or self-care (01) ==
LOC: WFO 17:20 → EMS 17:20 → FBP 17:31 → WFO 19:45
PROVIDERS: ATTEND Nurse Practitioner Obstetrics & Gynecology
DX: O47.1 False labor at or after 37 completed weeks of gestation (principal); O99.89 Other specified diseases and conditions complicating pregnancy, childbirth and the puerperium; R51 Headache; Z3A.39 39 weeks gestation of pregnancy
CPT/HCPCS: 36415; 80053; 82570; 84112; 84156; 84550; 85025; 99213

== ENCOUNTER 2019-03-19 08:26 | Outpatient (CLI) | payer MEDICAID ==
[2019-03-19 10:48] VITALS: BP 131/87
--- NOTE | 2019-03-30 19:01 | PROVIDER PROGRESS NOTE ---
- HPI Current : Current EDU 03/21/19 Gestation 39 Weeks and 5 Days 1 Para 0 Vital Signs Temperature 98.8 F 03/19/19 08:32 Heart Rate 104 H 03/19/19 08:32 Respiratory Rate 20 03/19/19 08:32 Blood Pressure 129/90 H 03/19/19 08:32 O2 Saturation 98 03/19/19 08:32 Temperature 98.4 F 03/19/19 10:41 Heart Rate 95 03/19/19 10:41 Respiratory Rate 17 03/19/19 10:41 Blood Pressure 131/87 H 03/19/19 10:41 O2 Saturation 99 03/19/19 10:41 - Exam Sterile vaginal exam/cervical exam: /; unchanged on serial exams over 2 hours - Procedures OB Procedure Performed: NST Diagnosis/Indication for NST: Other NST Procedure: NST Procedure Start Date 03/19/19 Start Time 08:30 Stop Time 09:03 Vibroacoustic Stimulation Used No Patient States Movement Yes: labor eval EFM: 150 mod cassandra 15x15 accels no decels TOCO: intermittent Service Date of procedure: 03/19/19 Procedure Details: Patient is a 23 yo at 39w5d with painful contractions Denies LOF/VB. Endorses FM US for size/date discrepancy wnl Cat I tracing No change in cervical exam over 2-3 hours of observation - Plan Plan: 23 yo at 39w5d here for labor check LABOR: no change in cervical exam over several hours of observation -Latent labor/prodromal labor FWB: appropriate growth, vertex, Category I tracing Discharged to home with warning signs DX: Latent labor DOS: 03/19/2019
== END 2019-03-19 11:25 | disposition home or self-care (01) ==
LOC: WFO 08:26 → FBP 08:28 → WFO 11:25
PROVIDERS: ATTEND Obstetrics & Gynecology
DX: Z34.03 Encounter for supervision of normal first pregnancy, third trimester (principal); Z3A.39 39 weeks gestation of pregnancy
CPT/HCPCS: 99213

== ENCOUNTER 2019-03-19 19:57 | Outpatient (CLI) | payer MEDICAID ==
--- NOTE | 2019-03-22 22:22 | Ultrasound Report ---
Reason: UTERINE SIZE DATE DISCREPANCY,THIRD TRIMESTER Procedure Date: 03/19/2019 Accession Number: [id number] / [id number] Procedure: US - OB F/U or Repeat CPT Code: Final Report FULL RESULT: EXAM: FOLLOW-UP OBSTETRICAL ULTRASOUND EXAM DATE: 03/19/2019 08:33 PM. CLINICAL HISTORY: UTERINE SIZE DATE DISCREPANCY, THIRD TRIMESTER. COMPARISON: OB F/U OR REPEAT 03/03/2019 5:39 PM. TECHNIQUE: Real-time sonographic evaluation of the fetus performed by the machine inspector. Multiple medical sales representative static images were saved for review. DATING: Established EGA 39 weeks 5 days with DERIAN 03/21/2019 based on LMP. EGA 39 weeks 6 days with DERIAN 03/20/2019 based on initial ultrasound. EGA 36 weeks 5 days with DERIAN 04/11/2019 based on the current ultrasound. GENERAL EVALUATION Rai . Cardiac activity: 149 bpm. movement: Visualized. Presentation: Cephalic. Placenta: Anterior position. Amniotic fluid: Normal. JASS 17.5 cm. MVP 6.1 cm. BIOMETRY Bi-Parietal Diameter (BPD): 9.1 cm, 37 weeks 1 day Head Circumference (HC): 33.1 cm, 37 weeks 4 days Abdominal Circumference (AC): 34.9 cm, 38 weeks 5 days Femur Length (FL): 6.4 cm, 33 weeks 1 day Estimated Weight: 3139 g, 17.2 percentile for 39 weeks 5 days. IMPRESSION: 1. Rai live intrauterine with gestational age 39 weeks 5 days based on stated dates. 2. Estimated weight is within expected limits for assigned dating. 3. Low normal interval growth compared to 03/03/2019. RADIA
== END 2019-03-19 19:58 | disposition home or self-care (01) ==
LOC: DI 19:57
PROVIDERS: ATTEND Nurse Practitioner Obstetrics & Gynecology
DX: O26.843 Uterine size-date discrepancy, third trimester (principal); Z3A.39 39 weeks gestation of pregnancy
CPT/HCPCS: 76816

== ENCOUNTER 2019-03-19 20:01 | Outpatient (CLI) | payer MEDICAID ==
[2019-03-19 20:15] VITALS: BP 122/84
--- NOTE | 2019-03-25 16:36 | PROVIDER PROGRESS NOTE ---
- HPI Current : Current EDU 03/21/19 Gestation 39 Weeks and 5 Days 1 Para 0 Vital Signs Temperature 98.1 F 03/19/19 20:15 Heart Rate 95 03/19/19 20:15 Respiratory Rate 16 03/19/19 20:15 Blood Pressure 122/84 H 03/19/19 20:15 O2 Saturation 99 03/19/19 20:15 Temperature 98.1 F 03/19/19 20:15 Heart Rate 95 03/19/19 20:15 Respiratory Rate 16 03/19/19 20:15 Blood Pressure 122/84 H 03/19/19 20:15 O2 Saturation 99 03/19/19 20:15 - Procedures OB Procedure Performed: NST Diagnosis/Indication for NST: Other NST Procedure: NST Procedure Start Time 08:30 Stop Time 09:03 135 mod cassandra 15x15 accels no decel TOCO: intermittent and mild Cat I tracing Service Date of procedure: 03/19/19 Procedure Details: Patient is a 23 yo at 39w5 here with painful contractions No LOD/VB. Endorses FM Serial cervical exam performed by RN showed no significant change Cat I tracing Final DX: latent labor Discharge to home
== END 2019-03-19 22:44 | disposition home or self-care (01) ==
LOC: WFO 20:01 → FBP 20:04 → WFO 22:44
PROVIDERS: ATTEND Obstetrics & Gynecology
DX: O26.843 Uterine size-date discrepancy, third trimester (principal); Z3A.39 39 weeks gestation of pregnancy
CPT/HCPCS: 59025; 76816; 99213

== ENCOUNTER 2019-03-21 04:31 | Inpatient (IN) | payer MEDICAID ==
[2019-03-21] MEDS ORDERED: ONDANSETRON 4 MG/2 ML VIAL IVP PRN ×2 (05:13→07:52)
[2019-03-21] MEDS ORDERED: SODIUM CHLORIDE FLUSH 0.9% 10 ML SYRINGE IVP PRN (05:13)
[2019-03-21] MEDS ORDERED: fentaNYL 100 MCG/2 ML VIAL IVP PRN (05:13)
[2019-03-21] MEDS ORDERED: LACTATED RINGERS 1,000 ML IV ONE (05:29)
[2019-03-21 06:10] LABS: BASOPHILS % (AUTO) 0.3 %; EOSINOPHILS % (AUTO) 0.3 %; HGB - HEMOGLOBIN 12.6 g/dL (12.0-16.0); LYMPHOCYTES # (AUTO) 1.4 10^3/uL (1.5-3.5); LYMPHOCYTES % (AUTO) 15.4 %; MEAN CORPUSCULAR HEMOGLOBIN 30.7 pg (27.0-31.0); MEAN CORPUSCULAR HGB CONC 33.3 g/dL (32.0-36.0); MEAN PLATELET VOLUME 9.4 fL (7.9-10.8); MONOCYTES # (AUTO) 0.8 10^3/uL (0.0-1.0); MONOCYTES % (AUTO) 8.4 %; NEUTROPHILS # (AUTO) 6.7 10^3/uL (1.5-6.6); NEUTROPHILS % (AUTO) 74.9 %; PLT - PLATELET COUNT 226 10^3/uL (130-450); RED BLOOD COUNT 4.11 10^6/uL (4.20-5.40); RED CELL DISTRIBUTION WIDTH 14.5 % (12.0-15.0)
[2019-03-21] MEDS ORDERED: ROPIVACAINE 0.2% 200 MG/100 ML BAG EP ONE (06:54)
[2019-03-21] MEDS ORDERED: LIDOCAINE-MPF 1% 30 ML VIAL ONE ×2 (06:54→15:09)
[2019-03-21] MEDS ORDERED: AMPICILLIN 2 GM in SODIUM CHLORIDE 0.9% MINIBAG 100 ML IV SCH (07:30)
[2019-03-21] MEDS ORDERED: METOCLOPRAMIDE 10 MG/2 ML VIAL IVP PRN (07:52)
[2019-03-21] MEDS ORDERED: NALOXONE 0.4 MG/ML VIAL IVP PRN (07:52)
[2019-03-21] MEDS ORDERED: ROPIVACAINE 0.2% 200 MG/100 ML BAG EP PRN (07:52)
[2019-03-21] MEDS ORDERED: LACTATED RINGERS 500 ML IV ONE (07:52)
[2019-03-21] MEDS ORDERED: diphenhydrAMINE INJ 50 MG/ML VIAL IVP PRN (07:52)
[2019-03-21] MEDS ORDERED: ePHEDrine 50 MG/ML VIAL IVP PRN (07:52)
[2019-03-21] MEDS ORDERED: NALBUPHINE 10 MG/ML AMP IVP PRN (07:52)
--- NOTE | 2019-03-21 07:52 | ANESTHESIA ---
Pre-Anesthesia VS, & Labs - Diagnosis active labor - Procedure laboring epidural Vital Signs: Temp Pulse Resp BP Pulse Ox 37.2 C 95 20 123/84 H 99 03/21/19 05:06 03/21/19 05:06 03/21/19 05:06 03/21/19 05:06 03/21/19 05:06 Height 5 ft 5 in Weight (kg) 83.21 kg Body Mass Index 23.1 - Is Patient ?: Yes - Lab Results Current Lab Results: Laboratory Tests 03/21/19 06:01: WBC 9.0, RBC 4.11 L, Hgb 12.6, Hct 37.8, MCV 92.0, MCH 30.7, MCHC 33.3, RDW 14.5, Plt Count 226, MPV 9.4, Neut # (Auto) 6.7 H, Lymph # (Auto) 1.4 L, [place] # (Auto) 0.8, Eos # (Auto) 0.0, Baso # (Auto) 0.0, Absolute Nucleated RBC 0.00, Nucleated RBC % 0.0 Fish Bones: 03/21/19 06:01 Home Medications and Allergies Active Medications Acetaminophen (Tylenol) 650 mg PO Q6H DAMARI Fentanyl (Fentanyl) 50 mcg IVP Q1H PRN PRN Reason: PAIN Lactated Ringer's (Lr) 1,000 mls @ 150 mls/hr IV .Q6H40M DAMARI Ampicillin Sodium 2 gm/ Sodium (Chloride) 100 mls @ 100 mls/hr IV Q6HR [facility] Stop: 03/21/19 08:29 Last Admin: 03/21/19 07:23 Dose: 100 mls/hr Ampicillin Sodium 1 gm/ Sodium (Chloride) 100 mls @ 200 mls/hr IV Q6H DAMARI Ondansetron HCl (Zofran Inj) 4 mg IVP Q4H PRN PRN Reason: Nausea / Vomiting Sodium Chloride (Normal Saline Flush 0.9%) 10 ml IVP PRN PRN PRN Reason: NEEDED PER PROVIDER ORDERS Sodium Chloride (Normal Saline Flush 0.9%) 10 ml IVP 0100,0900,1700 [facility] Allergies/Adverse Reactions: Allergies Allergy/AdvReac Type Severity Reaction Status Date / Time No Known Drug Allergies Allergy Verified 07/28/18 23:44 Anes History & Medical History - Anesthetic History Anesthesia Complications: reports: No previous complications Family history of Anesthesia Complications: Denies Family history of Malignant Hyperthermia: Denies - Medical History Cardiovascular: reports: None Pulmonary: reports: None Gastrointestinal: reports: GERD, Cholelithiasis Urinary: reports: None Neuro: reports: None Musculoskeletal: reports: None Endocrine/Autoimmune: reports: None Blood Disorders: reports: None Skin: reports: None Smoking Status: Never smoker - Surgical History General: Cholecystectomy Orthopedic: Other Exam General: Alert, Oriented x3, Cooperative, No acute distress Dental: WNL Mouth Openin Fingerbreadth Neck Mobility: Normal Mallampati classification: II Thyromental Distance: 4-6 cm Respiratory: Lungs clear, Normal breath sounds, No respiratory distress, No accessory muscle use Cardiovascular: Regular rate, Normal S1, Normal S2, No murmurs Abdomen: Normal bowel sounds, Soft, No tenderness, No hepatospenomegaly, No masses Extremities: No clubbing, No cyanosis, No edema, Normal pulses, No tenderness/swelling Neurological: Normal gait, Normal speech, Strength at 5/5 X4 ext, Normal tone, Sensation intact, Cranial nerves 3-12 NL, Reflexes 2+ Mental/Cognitive Status: Alert/Oriented X3, Normal for patient Cognitive Status: Within normal limits Plan Anesthesia Type: Epidural Consent for Procedure(s) Verified and Reviewed: Yes Code Status: Attempt Resuscitation ASA classification: 2-Mild systemic disease Is this case an emergency?: No
[2019-03-21] MEDS: ACETAMINOPHEN 325 MG TABLET PO SCH (08:11)
[2019-03-21] MEDS: LACTATED RINGERS 1,000 ML IV SCH ×2 (09:32→13:45)
--- NOTE | 2019-03-21 10:34 | PREOP HISTORY & PHYSICAL ---
DATE OF SERVICE: 03/21/2019 Physician: Stewart Williamson MD IDENTIFICATION: The patient is a 23-year-old G1, P0 female whose due date is 03/21/2019. CHIEF COMPLAINT: Active labor. HISTORY OF PRESENT ILLNESS: The patient states that at roughly 11 o'clock last night, she developed strong uterine contractions. She denies spontaneous rupture of membranes. She has noted good motion. Her OB care started at about 9 weeks' EGA. It is significant for having a low-lying placent a noted early in her . However, this resolved. She is also noted to have an estimated weight of 95 percentile. She has a history of having HSV and has started the acyclovir since then. Her is also complicated with anemia. Her labs show her to be A+, she is rubella immune, s he is GC and chlamydia negative. Her HSV, as well as RPR, are negative. Her 50-gram Glucola was 102 . She had a group B strep urine culture. PAST MEDICAL HISTORY: Positive for gonorrhea. She also has a history of strep pharyngitis. PAST SURGICAL HISTORY: Cholecystectomy. ALLERGIES: NONE KNOWN. CURRENT MEDICATIONS: Ferrous sulfate, as well as vitamins. SOCIAL HISTORY: The patient exercises regularly, does not smoke, drink or do any drugs. She is curr ently not , but has a boyfriend. PHYSICAL EXAMINATION: GENERAL: Well-developed, well-nourished female, in no acute distress at this time. VITAL SIGNS: Temperature is 37.2, heart rate is 95, blood pressure is 123/84, respirations 20, satur ation 99% on room air. HEENT: Pupils are equal and round. Extraocular muscles are intact. Thyroid is not palpably enlarge d. HEART: Regular rate and rhythm without murmurs. LUNGS: Lung ojeda are clear without rales or wheezes. ABDOMEN: Gravid. Cervix noted the to be vertex, 5 cm, 90%, -1 at 4:30 on admission. IMPRESSION: 1. A 23-year-old primigravida, due date today. 2. History of positive group B strep in urine. 3. History of herpes simplex virus, without a current outbreak. 4. Active labor. PLAN: Epidural has been placed. We will place two doses of ampicillin to cover group B strep. We w ill refrain from rupture of membranes or exams until after she has gotten her second dose. TD: 03/21/2019 08:37
[2019-03-21] MEDS ORDERED: AMPICILLIN 1 GM in SODIUM CHLORIDE 0.9% MINIBAG 100 ML IV SCH ×2 (12:00→13:30)
[2019-03-21] MEDS ORDERED: OXYTOCIN/DEXTROSE 5 % 30 UNIT/500 ML BAG IV ONE (12:09)
--- NOTE | 2019-03-21 12:10 | PROVIDER PROGRESS NOTE ---
Labor Progress Note - Uterine Monitoring Uterine Monitoring Mode: positive: External toco Contraction Frequency (min/apart): DIFFICULT TO MONITOR. Q4 MIN Contraction Intensity: positive: Moderate to strong Uterine Resting Tone: positive: Soft - Monitoring Monitor Mode: positive: External ultrasound Heart Rate Baseline: 150 Heart Rate Variability: positive: Moderate (6-25 bmp) Accelerations: positive: Present, 15x15 Decelerations: positive: None Strip Review: positive: Category I - Vaginal Exam Dilation (in cm): 6 Effacement (%): 100% Station: -3 Cervical Position: Midposition - Labor Progress Note Labor Progress Note/Additional Text: recieved second dose of Ampicillin bulging bag with fore bag. Needs to be better applied. will augment with Pit and AROM when able.
[2019-03-21] MEDS ORDERED: OXYTOCIN/DEXTROSE 5 % 30 UNIT/500 ML BAG IV SCH (13:00)
[2019-03-21] MEDS ORDERED: miSOPROStoL 200 MCG TABLET ONE (15:09)
[2019-03-21] MEDS: SODIUM CHLORIDE FLUSH 0.9% 10 ML SYRINGE IVP SCH (16:34)
[2019-03-21] MEDS ORDERED: OXYTOCIN 10 UNIT/ML VIAL IM ONE ×2 (17:36→18:35)
[2019-03-21] MEDS ORDERED: OXYTOCIN 10 UNIT/ML VIAL ONE (17:41)
[2019-03-21] MEDS ORDERED: LIDOCAINE-MPF 1% 30 ML VIAL ID PRN (17:46)
[2019-03-21] MEDS ORDERED: METHYLERGONOVINE 0.2 MG/ML AMP ONE (17:57)
[2019-03-21] MEDS ORDERED: METHYLERGONOVINE 0.2 MG/ML AMP IM PRN (18:17)
[2019-03-21] MEDS ORDERED: HYDROCORTISONE 1% CREAM 28 GM TUBE PR PRN (18:17)
[2019-03-21] MEDS ORDERED: diphenhydrAMINE 25 MG CAPSULE PO PRN (18:17)
[2019-03-21] MEDS ORDERED: oxyCODONE 5 MG TABLET PO PRN (18:17)
--- NOTE | 2019-03-21 18:27 | DELIVERY NOTE ---
Delivery Note - Labor Labor: positive: Spontaneous, Augmented by oxytocin - Delivery Method Delivery Method: positive: Spontaneous vaginal delivery - Presentation Presentation: positive: Vertex, JEANNE - right occiput anterior - Nuchal Cord Nuchal Cord: positive: Present (TIMES 2), Reduced (AFTER DELIVERY OF THE HEAD) - Anesthetic Anesthetic Type: Anesthetic: positive: Lidocaine - 1% plain Volume: positive: Other (20) - Amniotic Fluid Description Amniotic Fluid Description: positive: Thick meconium, Particulate meconium - Episiotomy Type Episiotomy Type: positive: None - Laceration Laceration: positive: 2nd degree, Perineal - Suture Suture Type: positive: Vicryl Suture Size: positive: 3-0 - Delivery Outcome Delivery Outcome: positive: Livebirth (male 8) - [place]: positive: Placed in direct skin contact with mother, Suctioned, Bulb syringe, Stimulated, Warmed [place] sex: positive: Male - Cord Cord: positive: 3 vessels - Placenta Placenta: positive: Intact (Marginal insertion) - Estimated Blood Loss Estimated Blood Loss (in cc): 450 - Post Delivery Events Post Delivery Events: positive: No post delivery events - Delivery Comments (Free Text/Narrative) Delivery Comments (Free Text/Narrative): Pt SROMed and was noted ot have thick Mec. For this reason peds wa notified adn asked to be present for delivery. She reached complete at 1546, aslowed to labor down and started pushing at 1739. epidural was ineffective at this time. Excellent pushing and 1739 a live male was delivered over a first degree laceration. because of baby measuring 95%tile [place] maneuvers were started prophylactically. Nucal cord times 2 was reduced with delivery of the head. Placenta followed intactwith marginal insertion of the cord. because the IV infilterated Pit was given IM as well as [place]. Laceration was repaired with 3 0 vicril EBL 450.
[2019-03-21] MEDS ORDERED: LACTATED RINGERS 1,000 ML IV SCH (19:00)
[2019-03-21] MEDS: IBUPROFEN 800 MG TABLET PO SCH (20:03)
[2019-03-21] MEDS: DOCUSATE SODIUM 100 MG CAPSULE PO SCH (20:03)
[2019-03-22] MEDS: IBUPROFEN 800 MG TABLET PO SCH ×4 (03:36→23:00)
[2019-03-22] MEDS: ACETAMINOPHEN 325 MG TABLET PO SCH ×7 (03:37→19:48)
[2019-03-22 08:31] LABS: BASOPHILS # (AUTO) 0.1 10^3/uL (0.0-0.1); BASOPHILS % (AUTO) 0.3 %; EOSINOPHILS % (AUTO) 0.1 %; HGB - HEMOGLOBIN 10.8 g/dL (12.0-16.0); LYMPHOCYTES # (AUTO) 1.6 10^3/uL (1.5-3.5); LYMPHOCYTES % (AUTO) 10.5 %; MEAN CORPUSCULAR HEMOGLOBIN 31.2 pg (27.0-31.0); MEAN CORPUSCULAR HGB CONC 33.6 g/dL (32.0-36.0); MEAN CORPUSCULAR VOLUME 92.8 fL (81.0-99.0); MEAN PLATELET VOLUME 9.4 fL (7.9-10.8); MONOCYTES # (AUTO) 1.4 10^3/uL (0.0-1.0); MONOCYTES % (AUTO) 8.9 %; NEUTROPHILS # (AUTO) 12.1 10^3/uL (1.5-6.6); NEUTROPHILS % (AUTO) 79.6 %; PLT - PLATELET COUNT 209 10^3/uL (130-450); RED BLOOD COUNT 3.46 10^6/uL (4.20-5.40); RED CELL DISTRIBUTION WIDTH 14.6 % (12.0-15.0); WHITE BLOOD COUNT 15.2 x10^3/uL (4.8-10.8)
--- NOTE | 2019-03-22 10:09 | PROVIDER PROGRESS NOTE ---
Subjective - Prog Note Date Prog Note Date: 03/22/19 Prog Note Time: 10:06 - Subjective Pt reports feeling: Improved (Pain 2/10. mild cramping with breast feeding.) Objective - Vital Signs/Intake & Output Reviewed Vital Signs: Yes Vital Signs: Vital Signs x48h Temp Pulse Resp BP BP Pulse Ox 03/22/19 08:36 36.5 C 98 16 126/73 100 03/22/19 04:27 36.8 C 89 16 109/65 99 Intake & Output: Intake & Output 03/19/19 03/20/19 03/21/19 03/22/19 23:59 23:59 23:59 23:59 Intake Total 1132.5 350 Output Total 1675 200 Balance -542.5 150 - Objective General Appearance: positive: No acute distress, Alert Respiratory: positive: Chest non-tender, No respiratory distress, Breath sounds nml Cardiovascular: positive: Regular rate & rhythm, No murmur, No gallop Abdomen: positive: Non-tender, Nml bowel sounds, Mass (at U) Extremities: negative: Calf tenderness, Vidya's sign/cords - Lab Results Fish Bones: 03/22/19 08:20 Other Labs: Lab Results x24hrs 03/22/19 Range/Units 08:20 WBC 15.2 H (4.8-10.8) x10^3/uL RBC 3.46 L (4.20-5.40) 10^6/uL Hgb 10.8 L (12.0-16.0) g/dL Hct 32.1 L (37.0-47.0) % MCV 92.8 (81.0-99.0) fL MCH 31.2 H (27.0-31.0) pg MCHC 33.6 (32.0-36.0) g/dL RDW 14.6 (12.0-15.0) % Plt Count 209 (130-450) 10^3/uL MPV 9.4 (7.9-10.8) fL Neut # (Auto) 12.1 H (1.5-6.6) 10^3/uL Lymph # (Auto) 1.6 (1.5-3.5) 10^3/uL [place] # (Auto) 1.4 H (0.0-1.0) 10^3/uL Eos # (Auto) 0.0 (0.0-0.7) 10^3/uL Baso # (Auto) 0.1 (0.0-0.1) 10^3/uL Absolute Nucleated RBC 0.00 x10^3/uL Nucleated RBC % 0.0 /100WBC Assessment/Plan - Problem List (1) (spontaneous vaginal delivery) Impression: mild bleeding breast feeding
[2019-03-22] MEDS: DOCUSATE SODIUM 100 MG CAPSULE PO SCH ×2 (10:10→23:00)
[2019-03-22] MEDS: SODIUM CHLORIDE FLUSH 0.9% 10 ML SYRINGE IVP SCH ×2 (11:59→12:00)
[2019-03-23] MEDS: ACETAMINOPHEN 325 MG TABLET PO SCH ×2 (03:41→13:39)
[2019-03-23] MEDS: DOCUSATE SODIUM 100 MG CAPSULE PO SCH (08:48)
[2019-03-23] MEDS: IBUPROFEN 800 MG TABLET PO SCH ×2 (08:48→15:34)
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
[2019-03-23 12:53] VITALS: BP 119/68
--- NOTE | 2019-03-23 19:37 | Labor Flowsheet ---
Labor Flowsheet Datetime Report Generated by CPN: 03/23/2019 19:37 Datetime: 03/23/2019 12:33 VITAL SIGNS NBP Sys/Maria Luisa/Mean (mmHg): 119 : 68 : 80 Pulse: 84 LaborFlag: Labor Datetime: 03/23/2019 03:43 SpO2 (%): 100 Datetime: 03/21/2019 17:46 Stage 2 Comments: Placenta sent to pathology, marginal insertion Datetime: 03/21/2019 17:39 UTERINE ACTIVITY Monitor Mode: External Frequency (min): 1-2 Quality: Strong Pattern: Normal: <= 5 Contractions in 10 Minutes Resting Tone (Palpate): Relaxed Contraction Comments: Pushing contractions ASSESSMENT A Monitor Mode: Telemetry FHR Baseline Rate : 150 Variability: Minimal - Undetectable to <=5 bpm Accelerations: None Decelerations: Variable Category: Category II Oxygen Method: Room Air Datetime: 03/21/2019 17:15 Comments: Maternal HR [id number] Datetime: 03/21/2019 17:00 Duration (sec): 40-80 Datetime: 03/21/2019 16:49 Patient Position/Activity: Left Lateral COMMUNICATION Communication: Provider at Bedside Provider Notified (Name): A Azizaekjennifer, TYRE RETREADER Datetime: 03/21/2019 16:48 STAGE 2 Pushing: Coached on Pushing Pushing Position: Pushing with Contractions; Pushing Lithotomy Pushing Progress: Descent with Pushing Datetime: 03/21/2019 16:47 Epidural Procedure Other: Redose Datetime: 03/21/2019 16:41 Communication Comments: Inquired how long until provider will be able to see patient; provider stat ed he will be over in a few minutes Datetime: 03/21/2019 16:00 Respirations: 20 Temperature (C): 37.2 PAIN Pain Scale: 8 Pain Presence: Intermittent Pain Type: Cramping; Pressure Pain Location: Abdomen; Perineum Pain Coping: Crying Comfort Measures: Family Support Datetime: 03/21/2019 15:46 VAGINAL EXAM Dilatation (cm): 10.0 Effacement (%): 100 Station: -1 Exam by: A Bajohn, RN Datetime: 03/21/2019 15:29 Monitor Interventions for UA: [facility] Adjusted Datetime: 03/21/2019 15:00 Pain Relief Measures: Epidural Given Anesthesia Comments: New bag of ropivicaine hung in epidural Datetime: 03/21/2019 14:51 Pain Assessment Comments: With pressure in perineum Datetime: 03/21/2019 13:45 PATIENT CARE IV/Blood Work: New IV Bag Hung; IV Bag Number @ 3 Datetime: 03/21/2019 13:43 Vaginal Bleeding: None Cervix, Consistency: Soft Cervix, Position: Midposition Datetime: 03/21/2019 13:42 Membrane Status: Ruptured Membranes Rupture Method: Spontaneous Amniotic Fluid Color: Particulate Meconium Amniotic Fluid Amount: Large Amniotic Fluid Odor: Normal Datetime: 03/21/2019 12:38 MEDICATIONS Pitocin (milliunits): Started @ 1 Datetime: 03/21/2019 12:31 Patient Care Comments: Peanut ball between legs Datetime: 03/21/2019 12:00 Vaginal Exam Comments: Head not engaged, unable to AROM at this time Datetime: 03/21/2019 11:30 Antibiotics: Ampicillin IV 1 Gm Datetime: 03/21/2019 11:00 Anesthesia Level Check: T10- Umbilicus Datetime: 03/21/2019 10:15 FHR Baseline Changes: Tachycardia Datetime: 03/21/2019 08:34 I/O Interventions: Acuña Cath Inserted Datetime: 03/21/2019 07:50 Vital Sign Comments: Patient describes heaviness to legs; nausea improved MATERNAL ASSESSMENT Level of Consciousness: Fully Conscious Headache: Denies Breath Sounds, Left: Clear and Equal Breath Sounds, Right: Clear and Equal Nausea/Vomiting: Denies RUQ Epigastric Pain: Denies Datetime: 03/21/2019 07:13 Epidural Procedure: Test Dose Datetime: 03/21/2019 06:59 PROCEDURE TIME OUT Procedure Verify: Correct Patient Identity; Correct Side and Site are Marked; Accurate Procedure Co nsent Form; Agreement on Procedure to be Done; Correct Patient Position ANESTHESIA Anesthesia Plans: Epidural Datetime: 03/21/2019 06:58 Epidural Positioning: Sitting Datetime: 03/21/2019 06:30 Pain Goal: 5 Datetime: 03/21/2019 06:02 DTR's/Clonus: DTRs 1+ Datetime: 03/21/2019 05:30 Stage of : Labor
--- NOTE | 2019-03-25 10:03 | PROVIDER PROGRESS NOTE ---
Subjective - Prog Note Date Prog Note Date: 03/21/19 Prog Note Time: 12:00 - Subjective Subjective: I expect discharge or transfer within 96 hours Objective - Vital Signs/Intake & Output Intake & Output: Intake & Output 03/22/19 03/23/19 03/24/19 03/25/19 23:59 23:59 23:59 23:59 Intake Total 350 Output Total 200 Balance 150 - Lab Results Fish Bones: 03/22/19 08:20
== END 2019-03-23 15:40 | disposition home or self-care (01) | DRG 806 ==
LOC: WFO 04:31 → FBP 04:33 → WFO 05:12 → FBP 05:13
PROVIDERS: ADMIT Obstetrics & Gynecology; ATTEND Obstetrics & Gynecology
PROC: 10E0XZZ Delivery of Products of Conception, External Approach (ICD-10-PCS; principal; 2019-03-21)
PROC: 0KQM0ZZ Repair Perineum Muscle, Open Approach (ICD-10-PCS; 2019-03-21)
DX: O99.824 Streptococcus B carrier state complicating childbirth (principal); O98.52 Other viral diseases complicating childbirth; Z37.0 Single live birth; B00.9 Herpesviral infection, unspecified; O77.0 Labor and delivery complicated by meconium in amniotic fluid; O70.1 Second degree perineal laceration during delivery; O43.123 Velamentous insertion of umbilical cord, third trimester; O36.63X0 Maternal care for excessive fetal growth, third trimester, not applicable or unspecified; O99.013 Anemia complicating pregnancy, third trimester; O90.89 Other complications of the puerperium, not elsewhere classified; Z63.0 Problems in relationship with spouse or partner; Z86.19 Personal history of other infectious and parasitic diseases; Z3A.40 40 weeks gestation of pregnancy
CPT/HCPCS: 36415; 85025; A9270; J7120; 99213

== ENCOUNTER 2019-05-22 08:00 | Outpatient (CLI) | payer MEDICAID ==
[2019-05-22 19:50] LABS: CANDIDA GROUP DNA NEGATIVE (NEGATIVE); CANDIDA KRUSEI DNA NEGATIVE (NEGATIVE); TRICHOMONAS VAGINALIS DNA NEGATIVE (NEGATIVE)
[2019-05-22 20:40] LABS: TRICHOMONAS VAGINALIS DNA NEGATIVE (NEGATIVE)
== END 2019-05-22 23:59 | disposition home or self-care (01) ==
LOC: LAB.R 08:00
PROVIDERS: ATTEND Nurse Practitioner Obstetrics & Gynecology
DX: Z11.3 Encounter for screening for infections with a predominantly sexual mode of transmission (principal); N76.0 Acute vaginitis
CPT/HCPCS: 87491; 87591; 87661; 87801

== ENCOUNTER 2019-06-12 15:25 | Outpatient (CLI) | payer MEDICAID | END 2019-06-12 23:59 | disposition home or self-care (01) | LOC: LAB.R 15:25 | PROVIDERS: ATTEND Registered Nurse | DX: J02.9 Acute pharyngitis, unspecified (principal) | CPT/HCPCS: 87070; 87077 ==

== ENCOUNTER 2020-02-05 08:00 | Outpatient (CLI) | payer MEDICAID | END 2020-02-05 23:59 | disposition home or self-care (01) | LOC: LAB.R 08:00 | PROVIDERS: ATTEND Registered Nurse | DX: J02.9 Acute pharyngitis, unspecified (principal) | CPT/HCPCS: 87070 ==

== ENCOUNTER 2020-05-18 08:00 | Outpatient (CLI) | payer MEDICAID ==
--- NOTE | 2020-05-18 16:11 | XRAY Report ---
PROCEDURE: Cervical Spine 2 View INDICATIONS: CERVICAL SPASM TECHNIQUE: 3 view(s) of the cervical spine were acquired. COMPARISON: None. FINDINGS: Bones: No fractures or dislocations to the C7-T1 level. The lateral masses of C1 appear intact on t he odontoid view. No suspicious bony lesions. Mild straightening of normal cervical curvature. Soft tissues: No prevertebral soft tissue swelling. IMPRESSION: Mild straightening of normal cervical curvature. Reviewed by: Terri Partida MD on 05/18/2020 4:10 PM PDT Approved by: Terri Partida MD on 05/18/2020 4:10 PM PDT Station ID: [id number]
[2020-05-18 18:00] LABS: BASOPHILS # (AUTO) 0.1 10^3/uL (0.0-0.1); EOSINOPHILS % (AUTO) 0.5 %; HCT - HEMATOCRIT 38.7 % (37.0-47.0); HGB - HEMOGLOBIN 12.5 g/dL (12.0-16.0); LYMPHOCYTES # (AUTO) 1.3 10^3/uL (1.5-3.5); LYMPHOCYTES % (AUTO) 20.5 %; MEAN CORPUSCULAR HEMOGLOBIN 30.3 pg (27.0-31.0); MEAN CORPUSCULAR HGB CONC 32.3 g/dL (32.0-36.0); MEAN CORPUSCULAR VOLUME 93.9 fL (81.0-99.0); MEAN PLATELET VOLUME 10.5 fL (7.9-10.8); MONOCYTES # (AUTO) 0.4 10^3/uL (0.0-1.0); MONOCYTES % (AUTO) 6.7 %; NEUTROPHILS # (AUTO) 4.4 10^3/uL (1.5-6.6); NEUTROPHILS % (AUTO) 71.1 %; PLT - PLATELET COUNT 272 10^3/uL (130-450); RED BLOOD COUNT 4.12 10^6/uL (4.20-5.40); WHITE BLOOD COUNT 6.2 x10^3/uL (4.8-10.8)
[2020-05-18 18:30] LABS: THYROID STIMULATING HORMONE 1.61 uIU/mL (0.34-5.60)
== END 2020-05-18 23:59 | disposition home or self-care (01) ==
LOC: DI.N 08:00
PROVIDERS: ATTEND Family Medicine
DX: M62.838 Other muscle spasm (principal); D64.9 Anemia, unspecified; R53.83 Other fatigue
CPT/HCPCS: 36415; 84443; 85025

== ENCOUNTER 2020-07-22 08:00 | Outpatient (CLI) | payer MEDICAID ==
[2020-07-22 22:42] LABS: BACTERIAL VAGINOSIS DNA NEGATIVE (NEGATIVE); CANDIDA GLABRATA DNA NEGATIVE (NEGATIVE); CANDIDA GROUP DNA NEGATIVE (NEGATIVE); CANDIDA KRUSEI DNA NEGATIVE (NEGATIVE); TRICHOMONAS VAGINALIS DNA NEGATIVE (NEGATIVE)
[2020-07-22 23:51] LABS: NEISSERIA GONORRHOEAE DNA NEGATIVE (NEGATIVE); TRICHOMONAS VAGINALIS DNA NEGATIVE (NEGATIVE)
[2020-07-22 23:53] LABS: CHLAMYDIA TRACHOMATIS DNA POSITIVE (NEGATIVE)
== END 2020-07-22 23:59 | disposition home or self-care (01) ==
LOC: LAB.N 08:00
PROVIDERS: ATTEND Family Medicine
DX: R10.2 Pelvic and perineal pain (principal); R10.31 Right lower quadrant pain
CPT/HCPCS: 87086; 87491; 87591; 87661; 87801

== ENCOUNTER 2020-08-12 12:45 | Outpatient (CLI) | payer MEDICAID ==
--- NOTE | 2020-08-12 13:08 | XRAY Report ---
PROCEDURE: Foot 3 View LT INDICATIONS: PAIN IN LEFT FOOT TECHNIQUE: 3 views of the foot were acquired. COMPARISON: None FINDINGS: Bones: Post-ORIF changes in fifth metatarsal shaft are seen. Alignment of left foot is anatomic. No gross hardware loosening or failure. No acute fracture or dislocation. No suspicious bony lesions. Soft tissues: No tibiotalar joint effusion. Achilles tendon appears normal. IMPRESSION: Post-ORIF changes in fifth metatarsal shaft with anatomic alignment. No acute fracture or dislocation . No gross hardware complication. Reviewed by: Isacc Tomas MD on 08/12/2020 1:06 PM PDT Approved by: Isacc Tomas MD on 08/12/2020 1:06 PM PDT Station ID: [id number]
== END 2020-08-12 23:59 | disposition home or self-care (01) ==
LOC: DI.N 12:45
PROVIDERS: ATTEND Nurse Practitioner
DX: S92.352D Displaced fracture of fifth metatarsal bone, left foot, subsequent encounter for fracture with routine healing (principal)

== ENCOUNTER 2020-09-28 08:00 | Outpatient (CLI) | payer MEDICAID ==
[2020-09-28 23:28] LABS: CHLAMYDIA TRACHOMATIS DNA NEGATIVE (NEGATIVE); NEISSERIA GONORRHOEAE DNA NEGATIVE (NEGATIVE); TRICHOMONAS VAGINALIS DNA NEGATIVE (NEGATIVE)
== END 2020-09-28 23:59 | disposition home or self-care (01) ==
LOC: LAB.WC 08:00
PROVIDERS: ATTEND Obstetrics & Gynecology
DX: Z11.3 Encounter for screening for infections with a predominantly sexual mode of transmission (principal)
CPT/HCPCS: 87491; 87591; 87661

== ENCOUNTER 2021-01-18 16:40 | Outpatient (CLI) | payer MEDICAID ==
[2021-01-18 23:03] LABS: CHLAMYDIA TRACHOMATIS DNA NEGATIVE (NEGATIVE); NEISSERIA GONORRHOEAE DNA NEGATIVE (NEGATIVE); TRICHOMONAS VAGINALIS DNA NEGATIVE (NEGATIVE)
[2021-01-18 23:03] LABS: CHLAMYDIA TRACHOMATIS DNA NEGATIVE (NEGATIVE); NEISSERIA GONORRHOEAE DNA NEGATIVE (NEGATIVE); TRICHOMONAS VAGINALIS DNA NEGATIVE (NEGATIVE)
== END 2021-01-18 16:41 | disposition home or self-care (01) ==
LOC: LAB.N 16:40
PROVIDERS: ATTEND Nurse Practitioner Obstetrics & Gynecology
DX: Z11.3 Encounter for screening for infections with a predominantly sexual mode of transmission (principal)
CPT/HCPCS: 87491; 87591; 87661

== ENCOUNTER 2021-03-06 08:00 | Outpatient (CLI) | payer MEDICAID | END 2021-03-06 23:59 | LOC: LAB.N 08:00 | PROVIDERS: ATTEND Family Medicine | DX: R05.9 Cough, unspecified (principal); R52 Pain, unspecified; Z20.822 Contact with and (suspected) exposure to COVID-19 ==

== ENCOUNTER 2022-01-15 08:00 | Outpatient (CLI) | payer MEDICAID ==
[2022-01-15 23:12] LABS: BACTERIAL VAGINOSIS DNA POSITIVE (NEGATIVE); CANDIDA GLABRATA DNA NEGATIVE (NEGATIVE); CANDIDA GROUP DNA NEGATIVE (NEGATIVE); CANDIDA KRUSEI DNA NEGATIVE (NEGATIVE); TRICHOMONAS VAGINALIS DNA NEGATIVE (NEGATIVE)
[2022-01-16 00:11] LABS: CHLAMYDIA TRACHOMATIS DNA NEGATIVE (NEGATIVE); NEISSERIA GONORRHOEAE DNA NEGATIVE (NEGATIVE)
== END 2022-01-15 23:59 | disposition home or self-care (01) ==
LOC: LAB.WC 08:00
PROVIDERS: ATTEND Nurse Practitioner
DX: N89.8 Other specified noninflammatory disorders of vagina (principal); Z11.3 Encounter for screening for infections with a predominantly sexual mode of transmission
CPT/HCPCS: 36415; 81514; 83036; 87491; 87591; 87661

== ENCOUNTER 2022-01-15 10:48 | Outpatient (CLI) | payer MEDICAID ==
[2022-01-15 12:33] LABS: ESTIMATED AVERAGE GLUCOSE 100 mg/dL (70-100); HEMOGLOBIN A1c% 5.1 % (4.27-6.07)
== END 2022-01-15 10:49 | disposition home or self-care (01) ==
LOC: LAB 10:48
PROVIDERS: ATTEND Nurse Practitioner
DX: N89.8 Other specified noninflammatory disorders of vagina (principal)
CPT/HCPCS: 36415; 83036

== ENCOUNTER 2022-08-03 08:00 | Outpatient (CLI) | payer MEDICAID ==
[2022-08-03 20:18] LABS: BACTERIAL VAGINOSIS DNA POSITIVE (NEGATIVE); CANDIDA GLABRATA DNA NEGATIVE (NEGATIVE); CANDIDA GROUP DNA NEGATIVE (NEGATIVE); CANDIDA KRUSEI DNA NEGATIVE (NEGATIVE); TRICHOMONAS VAGINALIS DNA NEGATIVE (NEGATIVE)
[2022-08-03 21:38] LABS: CHLAMYDIA TRACHOMATIS DNA NEGATIVE (NEGATIVE); NEISSERIA GONORRHOEAE DNA NEGATIVE (NEGATIVE)
== END 2022-08-03 23:59 | disposition home or self-care (01) ==
LOC: LAB.WC 08:00
PROVIDERS: ATTEND Nurse Practitioner
DX: N89.8 Other specified noninflammatory disorders of vagina (principal)
CPT/HCPCS: 81514; 87491; 87591; 87661

== ENCOUNTER 2022-10-08 08:00 | Outpatient (CLI) | payer MEDICAID ==
[2022-10-08 19:48] LABS: CHLAMYDIA TRACHOMATIS DNA NEGATIVE (NEGATIVE); NEISSERIA GONORRHOEAE DNA NEGATIVE (NEGATIVE)
[2022-10-08 19:59] LABS: BACTERIAL VAGINOSIS DNA NEGATIVE (NEGATIVE); CANDIDA GLABRATA DNA NEGATIVE (NEGATIVE); CANDIDA GROUP DNA NEGATIVE (NEGATIVE); CANDIDA KRUSEI DNA NEGATIVE (NEGATIVE); TRICHOMONAS VAGINALIS DNA NEGATIVE (NEGATIVE)
== END 2022-10-08 23:59 | disposition home or self-care (01) ==
LOC: LAB 08:00
PROVIDERS: ATTEND Obstetrics & Gynecology
DX: L29.8 Other pruritus (principal)
CPT/HCPCS: 81514; 87491; 87591; 87661

== ENCOUNTER 2023-01-18 21:32 | Emergency (ER) | payer MEDICAID ==
[2023-01-18] MEDS ORDERED: ONDANSETRON ODT 4 MG TABLET TL STA (23:34)
[2023-01-18] MEDS ORDERED: ACETAMINOPHEN 325 MG TABLET PO STA (23:34)
[2023-01-18] MEDS ORDERED: BENZONATATE 100 MG CAPSULE PO STA (23:34)
[2023-01-18] MEDS ORDERED: ONDANSETRON ODT 4 MG Prepack 2 TL PRN (23:34)
[2023-01-19 00:13] LABS: BILIRUBIN,URINE NEGATIVE (NEGATIVE); GLUCOSE, URINE (UA) NEGATIVE (NEGATIVE); KETONES,URINE (UA) 15 mg/dL (NEGATIVE); LEUKOCYTE ESTERASE, URINE SMALL (NEGATIVE); NITRITE,URINE NEGATIVE (NEGATIVE); OCCULT BLOOD,URINE TRACE-INTA (NEGATIVE); PH,URINE 5.5 PH (5.0-7.5); PROTEIN,URINE NEGATIVE (NEGATIVE); UROBILINOGEN,URINE 0.2 (NORMAL) E.U./dL (NORMAL)
[2023-01-19 00:28] LABS: BACTERIA,URINE Rare /HPF (None Seen); CLARITY,URINE CLEAR (CLEAR); HCG UR QUAL NEGATIVE; RBC,URINE 0-5 /HPF (0-5); SQUAMOUS EPITHELIAL CELL,UR MOD Squamous (<= Few); WBC,URINE 0-3 /HPF (0-5)
[2023-01-19 00:29] LABS: MUCUS,URINE Few Strands
[2023-01-19 01:46] LABS: B. PARAPERTUSSIS- RESP PCR PAN NOT DETECTED; B. PERTUSSIS- RESP PCR PANEL NOT DETECTED; C. PNEUMONIAE- RESP PCR PANEL NOT DETECTED; CORONAVIRUS 229E-RESP PCR NOT DETECTED; CORONAVIRUS HKU1-RESP PCR NOT DETECTED; CORONAVIRUS NL63-RESP PCR NOT DETECTED; CORONAVIRUS OC43-RESP PCR NOT DETECTED; HUMAN METAPNEUMOVIRUS NOT DETECTED; INFLUENZA A- RESP PCR PANEL NOT DETECTED; INFLUENZA B - RESP PCR PANEL NOT DETECTED; M. PNEUMONIAE- RESP PCR PANEL NOT DETECTED; PARAINFLUENZA VIRUS 1 NOT DETECTED; PARAINFLUENZA VIRUS 2 NOT DETECTED; PARAINFLUENZA VIRUS 3 NOT DETECTED; PARAINFLUENZA VIRUS 4 NOT DETECTED; RHINOVIRUS/ENTEROVIRUS NOT DETECTED; RSV- RESP PCR PANEL NOT DETECTED; SARS-CoV-2 -RESP PCR PANEL NOT DETECTED
--- NOTE | 2023-01-19 02:19 | ED Physician Documentation ---
History of Present Illness - Stated complaint Stated Complaint: FORD/ABD PX/BODY ACHES/COUGH - Chief complaint Chief Complaint: General - Additonal information Additional information: Patient 27-year-old female presenting to the emergency department with cough, congestion, headache, nausea. Symptoms ongoing x 1 day. No known sick contacts. Does report that she was positive for the SARS COVID virus approximately 2 weeks ago but that those symptoms resolved prior to the onset of her current symptoms. Does report some discomfort with urination. Denies fever, chest pain, shortness of breath Review of Systems Constitutional: reports: Myalgias. denies: Fever Eyes: denies: Loss of vision Ears: denies: Loss of hearing Nose: denies: Rhinorrhea / runny nose Throat: denies: Dental pain / toothache Cardiac: denies: Chest pain / pressure Respiratory: denies: Dyspnea GI: denies: Abdominal Pain : denies: Dysuria Musculoskeletal: denies: Neck pain PD PAST MEDICAL HISTORY - Past Medical History Past Medical History: Yes Cardiovascular: None Respiratory: None Neuro: None Endocrine/Autoimmune: None GI: GERD, Cholelithiasis : None HEENT: None Psych: None Musculoskeletal: None Derm: None - Past Surgical History Past Surgical History: Yes General: Cholecystectomy Ortho: Other - Present Medications Home Medications: Ambulatory Orders Medication Instructions Recorded Confirmed Amoxicillin 500 mg PO TID #21 cap 10/01/21 HYDROcod/ACETAM 5/325 [Allen 5/325] 1 ea PO Q6H PRN #12 tablet 10/01/21 Ondansetron Odt [Zofran] 4 mg TL Q6H PRN #10 tablet 10/01/21 Benzonatate [Tessalon] 100 mg PO Q8HR #20 cap 01/19/23 Ibuprofen [Motrin] 800 mg PO Q8H PRN #30 tablet 01/19/23 ONDANSETRON ODT Prepack 2 [ZOFRAN 4 mg TL Q6H #20 tablet 01/19/23 ODT Prepack 2] Pseudoephedrine HCl [Sudafed 240 mg PO DAILY #10 tab 01/19/23 24-Hour] - Allergies Allergies/Adverse Reactions: Allergies Allergy/AdvReac Type Severity Reaction Status Date / Time No Known Drug Allergies Allergy Verified 01/18/23 21:38 - Social History Does the pt smoke?: No Smoking Status: Never smoker Does the pt drink ETOH?: Yes Does the pt have substance abuse?: No - Immunizations Immunizations are current?: Yes - POLST Patient has POLST: No PD ED PE NORMAL - General General: Alert and oriented X 3, No acute distress, Well developed/nourished - HEENT HEENT: Atraumatic, PERRL, EOMI, Ears normal, Moist mucous membranes - Neck Neck: Supple, no meningeal sign, No bony TTP, No adenopathy, Thyroid normal - Cardiac Cardiac: RRR, No gallop, Strong equal pulses - Respiratory Respiratory: No respiratory distress, Clear bilaterally - Abdomen Abdomen: Normal bowel sounds, Soft, Non tender, Non distended, No organomegaly - Female Female : Deferred - Rectal Rectal: Deferred - Back Back: No CVA TTP - Derm Derm: Normal color - Extremities Extremities: No deformity - Neuro Neuro: Alert and oriented X 3, mass spectrometry manager 2-12 intact, No motor deficit, Normal speech Results - Vitals Vitals: Vital Signs - 24 hr 01/18/23 01/19/23 21:38 00:27 Temperature 37.0 C Heart Rate 127 H 106 H Respiratory 16 16 Rate Blood Pressure 135/85 H 98/70 O2 Saturation 98 100 Oxygen O2 Source Room air - Labs Labs: Laboratory Tests 01/19/23 01/19/23 00:00 00:00 Urine Color YELLOW Urine Clarity CLEAR Urine pH 5.5 Ur Specific [place] 1.010 Urine Protein NEGATIVE Urine Glucose (UA) NEGATIVE Urine Ketones 15 H Urine Occult Blood TRACE-INTA Urine Nitrite NEGATIVE Urine Bilirubin NEGATIVE Urine Urobilinogen 0.2 (NORMAL) Ur Leukocyte Esterase SMALL H Urine RBC 0-5 Urine WBC 0-3 Ur Squamous Epith Cells MOD Squamous H Urine Bacteria Rare Urine Mucus Few Strands Ur Microscopic Review INDICATED Urine Culture Comments NOT INDICATED Urine HCG, Qual NEGATIVE Nasal Adenovirus (PCR) NOT DETECTED Nasal B. parapertussis DNA (PCR) NOT DETECTED Nasal Coronavir 229E PCR NOT DETECTED Nasal Coronavir HKU1 PCR NOT DETECTED Nasal Coronavir NL63 PCR NOT DETECTED Nasal Coronavir OC43 PCR NOT DETECTED Nasal Enterovir/Rhinovir PCR NOT DETECTED Nasal Influenza B PCR NOT DETECTED Nasal Influenza A PCR NOT DETECTED Nasal Parainfluen 1 PCR NOT DETECTED Nasal Parainfluen 2 PCR NOT DETECTED Nasal Parainfluen 3 PCR NOT DETECTED Nasal Parainfluen 4 PCR NOT DETECTED Nasal RSV (PCR) NOT DETECTED Nasal B.pertussis DNA PCR NOT DETECTED Nasal C.pneumoniae (PCR) NOT DETECTED Gabriele Human Metapneumo PCR NOT DETECTED Nasal M.pneumoniae (PCR) NOT DETECTED Nasal SARS-CoV-2 (PCR) NOT DETECTED PD Medical Decision Making - ED course Complexity details: reviewed results, re-evaluated patient, d/w patient ED course: Patient 27-year-old female presenting to the emergency department with 1 day history of body ache, nausea, cough, upper airway congestion, headache. Low level tachycardia on arrival to the emergency department which did resolve shortly after arrival. No fever noted. No nuchal rigidity or indications of meningismus. Clear aeration in all lung ojeda with a benign abdominal exam. HEENT exam similarly benign. Patient did report some very mild suprapubic discomfort and I did order for urine analysis which was positive for ketones but otherwise benign. She was given Tessalon, acetaminophen, Zofran with some symptomatic improvement. I did obtain a respiratory viral panel which was negative for influenza or SARS COVID. Monitored in the emergency department for several hours without worsening symptoms. At this time will discharge with medication for symptomatic management and encourage careful follow-up with primary care. Clear return precautions given. Departure - Departure Disposition: 01 Home, Self Care Clinical Impression: Viral illness Instructions: ED Viral Syndrome Prescriptions: Benzonatate [Tessalon] 100 mg PO Q8HR #20 cap Ibuprofen [Motrin] 800 mg PO Q8H PRN #30 tablet PRN Reason: PAIN &/OR FEVER Pseudoephedrine HCl [Sudafed 24-Hour] 240 mg PO DAILY #10 tab ONDANSETRON ODT Prepack 2 [ZOFRAN ODT Prepack 2] 4 mg TL Q6H #20 tablet Comments: Thank you for allowing us to care for you today [facility] I have sent prescriptions to your preferred pharmacy, [facility] in [place]. Pl ease pick these up and begin taking them as directed tomorrow. Please drink plenty of fluids. Please follow-up with your primary care doctor soon as possible. If it anytime you develop any new or worsening symptoms please not hesitate to return. Forms: PCP List
[2023-01-19 02:57] VITALS: BP 114/83; O2SAT 97
== END 2023-01-19 02:50 | disposition home or self-care (01) ==
LOC: ED 21:32
DX: B34.9 Viral infection, unspecified (principal); Z20.822 Contact with and (suspected) exposure to COVID-19
CPT/HCPCS: 81001; 81025; 87633; 99283; 99284; A9270; Q0162; 81003; 87086

== ENCOUNTER 2023-07-03 08:00 | Outpatient (CLI) | payer MEDICAID ==
[2023-07-03 20:35] LABS: CHLAMYDIA TRACHOMATIS DNA NEGATIVE (NEGATIVE); NEISSERIA GONORRHOEAE DNA NEGATIVE (NEGATIVE)
[2023-07-03 20:45] LABS: BACTERIAL VAGINOSIS DNA POSITIVE (NEGATIVE); CANDIDA GLABRATA DNA NEGATIVE (NEGATIVE); CANDIDA GROUP DNA NEGATIVE (NEGATIVE); CANDIDA KRUSEI DNA NEGATIVE (NEGATIVE); TRICHOMONAS VAGINALIS DNA NEGATIVE (NEGATIVE)
== END 2023-07-03 23:59 | disposition home or self-care (01) ==
LOC: LAB.WC 08:00
PROVIDERS: ATTEND Obstetrics & Gynecology
DX: L29.8 Other pruritus (principal)
CPT/HCPCS: 81514; 87491; 87591; 87661

== ENCOUNTER 2023-08-14 16:16 | Outpatient (CLI) | payer MEDICAID ==
[2023-08-14 16:32] LABS: HCT - HEMATOCRIT 38.8 % (37.0-47.0); HGB - HEMOGLOBIN 12.7 g/dL (12.0-16.0); MEAN CORPUSCULAR HEMOGLOBIN 29.5 pg (27.0-31.0); MEAN CORPUSCULAR HGB CONC 32.7 g/dL (32.0-36.0); MEAN CORPUSCULAR VOLUME 90.2 fL (81.0-99.0); MEAN PLATELET VOLUME 9.1 fL (7.9-10.8); RED BLOOD COUNT 4.3 10^6/uL (4.20-5.40); RED CELL DISTRIBUTION WIDTH 12.2 % (12.0-15.0)
[2023-08-14 17:05] LABS: THYROID STIMULATING HORMONE 1.26 uIU/mL (0.34-5.60)
[2023-08-14 17:11] LABS: FERRITIN 9.1 ng/mL (11.0-306.8)
[2023-08-14 21:06] LABS: ESTIMATED AVERAGE GLUCOSE 97 mg/dL (70-100)
[2023-08-15 14:22] LABS: CHLAMYDIA TRACHOMATIS DNA NEGATIVE (NEGATIVE); NEISSERIA GONORRHOEAE DNA NEGATIVE (NEGATIVE)
[2023-08-15 14:33] LABS: BACTERIAL VAGINOSIS DNA NEGATIVE (NEGATIVE); CANDIDA GLABRATA DNA NEGATIVE (NEGATIVE); CANDIDA GROUP DNA POSITIVE (NEGATIVE); CANDIDA KRUSEI DNA NEGATIVE (NEGATIVE); TRICHOMONAS VAGINALIS DNA NEGATIVE (NEGATIVE)
== END 2023-08-14 16:17 | disposition home or self-care (01) ==
LOC: LAB 16:16
PROVIDERS: ATTEND Obstetrics & Gynecology
DX: R53.83 Other fatigue (principal)
CPT/HCPCS: 36415; 81514; 82728; 83036; 84443; 85027; 87491; 87591; 87661; 87801

== ENCOUNTER 2024-06-13 22:36 | Inpatient (IN) ==
[2024-06-13] MEDS ORDERED: SODIUM CHLORIDE FLUSH 0.9% 10 ML SYRINGE IVP PRN (22:56)
[2024-06-13] MEDS ORDERED: lidocaine 1% 20 ML MDV ID PRN (22:56)
[2024-06-13] MEDS ORDERED: miSOPROStoL 200 MCG TABLET BC PRN (22:56)
[2024-06-13] MEDS ORDERED: TERBUTALINE 1 MG/ML VIAL SUBQ PRN (22:56)
[2024-06-13] MEDS ORDERED: METHYLERGONOVINE 0.2 MG/ML VIAL IM PRN (22:56)
[2024-06-13] MEDS ORDERED: miSOPROStoL 200 MCG TABLET PR PRN (22:56)
[2024-06-13] MEDS ORDERED: OXYTOCIN/SODIUM CHLORIDE 500 ML IV PRN (22:56)
[2024-06-13] MEDS ORDERED: LABETALOL 20 MG/4 ML SYRINGE IVP PRN ×3 (22:56)
[2024-06-13] MEDS ORDERED: LACTATED RINGERS 1,000 ML IV PRN (22:56)
[2024-06-13] MEDS ORDERED: ONDANSETRON ODT 4 MG TABLET PO PRN (22:56)
[2024-06-13] MEDS ORDERED: hydrALAZINE INJ 20 MG/ML VIAL IVP PRN (22:56)
[2024-06-13] MEDS ORDERED: OXYTOCIN 10 UNIT/ML VIAL IM PRN (22:56)
[2024-06-13] MEDS ORDERED: TRANEXAMIC ACID IN NACL 1,000 MG/100 ML BAG IV PRN (22:56)
[2024-06-13] MEDS ORDERED: NIFEdipine 10 MG CAPSULE PO PRN (22:56)
[2024-06-13] MEDS ORDERED: fentaNYL 100 MCG/2 ML VIAL IVP PRN (22:56)
[2024-06-13 23:19] LABS: BASOPHILS % (AUTO) 0.3 %; EOSINOPHILS % (AUTO) 0.3 %; HCT - HEMATOCRIT 36.2 % (37.0-47.0); HGB - HEMOGLOBIN 11.6 g/dL (12.0-16.0); LYMPHOCYTES # (AUTO) 2.1 10^3/uL (1.5-3.5); LYMPHOCYTES % (AUTO) 22.4 %; MEAN CORPUSCULAR HEMOGLOBIN 28.9 pg (27.0-31.0); MEAN CORPUSCULAR VOLUME 90.3 fL (81.0-99.0); MEAN PLATELET VOLUME 9.8 fL (7.9-10.8); MONOCYTES # (AUTO) 0.9 10^3/uL (0.0-1.0); MONOCYTES % (AUTO) 9.2 %; NEUTROPHILS # (AUTO) 6.2 10^3/uL (1.5-6.6); PLT - PLATELET COUNT 253 10^3/uL (130-450); RED BLOOD COUNT 4.01 10^6/uL (4.20-5.40); RED CELL DISTRIBUTION WIDTH 14.6 % (12.0-15.0); WHITE BLOOD COUNT 9.2 x10^3/uL (4.8-10.8)
--- OUTSIDE RECORDS SUMMARY | 2024-06-13 23:22 | EXTERNAL MEDICAL SUMMARY RPT | Continuity of Care Document ---
Author Organization [facility] Address [address] [place] [id number] Phone Problems date description facility 2024-03-17 12:36 Encounter for superv ision of other normal , first trimester [facility] 2024-03-17 12:37 Encounter for superv ision of other normal , [facility]24-03-19 14:45 Encounter for superv ision of other normal , first trimester [facility] 2024-03-20 00:02 Encounter for superv ision of other normal , first trimester [facility] 2024-04-03 08:40 Pain in left wrist [facility] 2024-04-03 08:40 Other chest pain [facility] 2024-04-04 00:01 Encounter for superv ision of other normal , first trimester [facility] 2024-04-21 10:46 Encounter for superv ision of other normal , first trimester [facility] 2024-04-21 10:46 Encounter for superv ision of normal , unspecified, unspecified trimester [facility] 2024-04-21 12:13 Encounter for superv ision of other normal , first trimester [facility] 2024-04-21 12:13 Encounter for superv ision of normal , unspecified, unspecified trimester [facility] 2024-04-22 00:03 Encounter for superv ision of other normal , first trimester [facility] 2024-04-22 00:03 Encounter for superv ision of normal , unspecified, unspecified trimester [facility] 2024-04-22 11:51 Abnormal glucose complicating p [facility]nancy [facility] 2024-04-22 15:10 Encounter for superv ision of other normal , first trimester [facility] 2024-04-24 08:42 Abnormal glucose complicating p [facility] 2024-04-25 00:03 Abnormal glucose complicating p regnancy [facility] 2024-05-01 00:02 Acute vaginitis [facility] 2024-05-01 00:02 Gestational diabetes mellitus in , unspecified control [facility] 2024-05-01 12:35 Acute vaginitis [facility] 2024-05-01 12:35 Encounter for screen ing for infections with a predominantly sexual mode of transmission [facility] 2024-05-04 07:43 Acute vaginitis [facility] 2024-05-04 07:43 Encounter for screen ing for infections with a predominantly sexual mode of transmission [facility] 2024-05-07 11:10 Acute vaginitis [facility] 2024-05-08 10:52 Encounter for immunization [facility] 2024-05-08 11:07 Other specified noninflammatory disorders of vagina [facility] 2024-05-08 11:48 Other specified noninflammatory disorders of [facility] 11:48 Encounter for immunization [facility] 2024-05-09 00:03 Other specified noninflammatory disorders of vagina [facility] 2024-05-11 09:03 Gestational diabetes mellitus in , unspecified control [facility] 2024-05-11 11:22 Gestational diabetes mellitus in , unspecified control [facility] 2024-05-12 19:19 Gestational diabetes mellitus in , unspecified control [facility] 2024-05-13 00:02 Gestational diabetes mellitus in , unspecified control [facility] 2024-05-26 10:41 Encounter for screeni ng for Streptococcus B [email or web address] 2024-05-27 00:03 Encounter for screeni ng for Streptococcus B [email or web address] 2024-06-01 16:08 Gestational diabetes mellitus in , unspecified control [email or web address] 2024-06-04 10:36 Gestational diabetes mellitus in , unspecified control [email or web address] 2024-06-04 10:36 Other abnormal findi ngs on screening of mother [email or web address] 2024-06-04 10:46 Gestational diabetes mellitus in , unspecified control [email or web address] 2024-06-04 10:46 Other abnormal findi ngs on screening of mother [facility] 2024-06-04 10:47 Gestational diabetes mellitus in , unspecified control [facility] 2024-06-04 10:47 Other abnormal findi ngs on screening of mother [facility] 2024-06-04 10:48 Gestational diabetes mellitus in , unspecified control [facility] 2024-06-04 10:48 Other abnormal findi ngs on screening of mother [facility] 2024-06-04 15:00 Maternal care for ab normalities of the heart rate or rhythm, third trimester, not applicable or unspecified [facility] 2024-06-04 15:22 Maternal care for ab normalities of the heart rate or rhythm, third trimester, not applicable or unspecified [facility] 2024-06-05 00:02 Gestational diabetes mellitus in , [facility] 2024-06-05 00:02 Other abnormal findi ngs on screening of mother [facility] 2024-06-05 18:38 Gestational diabetes mellitus in , unspecified [facility] 2024-06-05 18:38 Other abnormal findi ngs on screening of mother [facility] 2024-06-08 09:36 Gestational diabetes mellitus in , unspecified [facility] 2024-06-08 12:54 Encounter for screeni ng for Streptococcus B [facility] 2024-[facility]-10 09:46 Other specified dise ases and conditions complicating [facility] 2024-06-11 10:32 Unspecified abnormalities of he art [employer] [facility] 2024-06-11 10:32 Elevated blood-press ure reading, without diagnosis of hypertension [facility] 2024-06-12 00:03 Unspecified abnormalities of he art beat [facility] 2024-06-12 00:03 Elevated blood-press ure reading, without diagnosis of hypertension [facility] 2024-06-12 11:02 Unspecified abnormalities of he art beat [facility] 2024-06-12 11:02 Elevated blood-press ure reading, without diagnosis of hypertension [facility] 2024-06-12 14:03 Unspecified abnormalities of he art beat [facility] Results/Labs test date facility value unit notes Result panel 1 WHITE BLOOD COUNT 2024-04-21 11:53 [facility] 10.2 x10 3/ul (missing) HGB - HEMOGLOBIN 2024-04-21 11:53 [facility] 11.2 g /dl (missing) RED CELL DISTRIBUTION WIDTH 2024-04-21 11:53 [facility] 12.0 % (missing) GLUCOSE,1H PP 50GM DOSE 2024-04-21 11:53 [facility] 149 mg/dl Social History date description facility
[2024-06-13 23:38] LABS: ALBUMIN 3.3 g/dL (3.2-5.5); ALBUMIN/GLOBULIN RATIO 1.2 (1.0-2.2); BILIRUBIN,TOTAL 0.3 mg/dL (0.2-1.0); CREATININE 0.5 mg/dL (0.6-1.3); POTASSIUM 3.8 mmol/L (3.5-4.5)
[2024-06-13] MEDS: LACTATED RINGERS 1,000 ML IV SCH (23:43)
[2024-06-13] MEDS: AMPICILLIN 2 GM in SODIUM CHLORIDE 0.9% MINIBAG 100 ML IV ONE (23:44)
[2024-06-14] MEDS: AMPICILLIN 1 GM in SODIUM CHLORIDE 0.9% MINIBAG 100 ML IV SCH ×2 (05:00→09:16)
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
--- NOTE | 2024-06-14 07:46 | PHARMACY PROGRESS NOTE ---
Best Possible Medication History Admit Date and Time: 06/13/24 2250 Home Medications Medication Instructions Recorded Confirmed Type vits 75-iron 28 mg-folic 1 pkg PO DAILY 12/06/23 06/14/24 History acid 800 mcg-omega3 440 mg oral pack (One Daily ) blood sugar diagnostic #200 ea 04/24/24 06/11/24 Rx lancets #200 ea 04/27/24 06/11/24 Rx acyclovir 400 mg tablet 400 mg PO TID #180 tabs 05/01/24 06/14/24 Rx blood-glucose meter #1 ea 05/22/24 06/11/24 Rx blood sugar diagnostic #100 ea 05/26/24 06/11/24 Rx Processed by: Pharmacy Medications reviewed in ED?: No Medication History completed: No Patient Interview: Completed Secondary Source(s): Insurance records [facility] Statement: Per RN interview with patient and review of [facility] Rx records. As the person ultimately responsible for medication therapy, providers are able to order a medication from an existing home medication list in [facility] via the "Reconcile Routine" prior to Confirmation of that medication by patient support specialist. Such practice is discouraged except when the physician, in their clinical judgment, deems that a medical need exists for a medication without regard to previous use.
[2024-06-14] MEDS: ACYCLOVIR 200 MG CAPSULE PO SCH (08:26)
[2024-06-14] MEDS: PRENATAL VITAMIN TABLET PO SCH (08:26)
[2024-06-14] MEDS: miSOPROStoL 100 MCG TABLET BC SCH (08:27)
--- NOTE | 2024-06-14 09:18 | PROVIDER PROGRESS NOTE ---
Subjective Subjective Subjective: Patient was admitted last night approximately 2300 following SROM, clear fluid at 39+0 weeks gestation. Has now had three doses of ampicillin for GBS. Upon admission she was about fingertip dilation. Repeat exam this morning per patient request 3/50%/-2, grossly ruptured. Not feeling contractions but having normal blood tinged show. Slept through the night. Desires to move forward with augmentation of labor. Was made aware by nursing that Eloisa had an elevated BP, normalized on repeat. She did have an elevated BP in clinic last week as well, making this her second elevated BP, diagnosis has been made of gestational hypertension. CMP drawn upon admission last night. Serum creatinine 0.5, AST 13, ALT 15, PLT 253. She does have 1+ lower extremity edema. Denies significant FORD, changes to vision or RUQ pain. Will collect UA after urinary catheter placement following epidural as she is ruptured and having a small amount of bloody show so that a urine PCR/MTP without catheterization will likely be erroneous. Will begin misoprostol 50mcg BC q 4 hours until active labor. Current Medications Current Medications Current Medications: Current Medications Generic Name Dose Route Start Last Admin Trade Name Freq PRN Reason Stop Dose Admin Acetaminophen 1,000 mg 06/13/24 22:56 Acetaminophen 500 Mg Tablet PO Q8H PRN Mild Pain or Fever>38C(100.4F) Acyclovir 400 mg 06/14/24 08:00 06/14/24 08:26 Acyclovir 200 Mg Capsule PO 400 mg TID DAMARI Administration Fentanyl 50 mcg 06/13/24 22:56 Fentanyl 100 Mcg/2 Ml Vial IVP Q1H PRN Severe Pain (score 7-10) Hydralazine HCl 5 - 10 mg 06/13/24 22:56 Hydralazine Inj 20 Mg/Ml Vial IVP Q20M PRN SBP> or= 160 OR DBP> or= 110 Protocol Lactated Ringer's 500 mls @ 999 mls/hr 06/13/24 22:56 Lr IV PRN PRN Heart Rate Abnormalities Oxytocin/Sodium Chloride 500 mls @ 999 mls/hr 06/13/24 22:56 Pitocin/Sodium Chloride IV PRN PRN POST- HEMORR PREVENTION Protocol 999 MILLIUNIT/MIN Tranexamic Acid 1,000 mg in 100 mls @ 600 mls/hr 06/13/24 22:56 Tranexamic 1,000 Mg/100ml-Nacl IV Q30M PRN EBL >1200mL and within 3hr Lactated Ringer's 1,000 mls @ 125 mls/hr 06/13/24 23:00 06/14/24 07:45 Lr IV Infused .Q8H [facility] Infusion Ampicillin Sodium 1 gm/ Sodium 100 mls @ 100 mls/hr 06/14/24 09:00 Chloride IV Q4HR [facility] Labetalol HCl 20 - 80 mg 06/13/24 22:56 Labetalol 20 Mg/4 Ml Syringe IVP Q10M PRN SBP> or= 160 OR DBP> or= 110 Protocol Labetalol HCl 20 mg 06/13/24 22:56 Labetalol 20 Mg/4 Ml Syringe IVP .ONCE PRN SBP> or= 160 OR DBP> or= 110 Protocol Labetalol HCl 20 - 40 mg 06/13/24 22:56 Labetalol 20 Mg/4 Ml Syringe IVP Q10M PRN SBP> or= 160 OR DBP> or= 110 Protocol Lidocaine HCl 20 ml 06/13/24 22:56 Lidocaine 1% 20 Ml Mdv ID 06/16/24 22:57 .ONCE PRN PERINEAL REPAIR Methylergonovine Maleate 0.2 mg 06/13/24 22:56 Methylergonovine 0.2 Mg/Ml Vial IM .ONCE PRN Hemorrhage Misoprostol 600 mcg 06/13/24 22:56 Misoprostol 200 Mcg Tablet BC .ONCE PRN Hemorrhage Misoprostol 800 mcg 06/13/24 22:56 Misoprostol 200 Mcg Tablet LA .ONCE PRN Hemorrhage Misoprostol 50 mcg 06/14/24 08:00 06/14/24 08:27 Misoprostol 100 Mcg Tablet BC 50 mcg Q4H DAMARI Administration Nifedipine 10 - 20 mg 06/13/24 22:56 Nifedipine 10 Mg Capsule PO Q20M PRN SBP> or= 160 OR DBP> or= 110 Protocol Ondansetron HCl 4 mg 06/13/24 22:56 Ondansetron Odt 4 Mg Tablet PO Q4HR PRN Nausea / Vomiting Oxytocin 10 unit 06/13/24 22:56 Oxytocin 10 Unit/Ml Vial IM .ONCE PRN Step One if no IV access. Multivit/Folic Acid/Iron 1 tab 06/14/24 08:00 06/14/24 08:26 Vitamin Tablet PO 1 tab DAILYWM DAMARI Administration Sodium Chloride 10 ml 06/13/24 22:56 Sodium Chloride Flush 0.9% 10 Ml Syringe IVP PRN PRN NEEDED PER PROVIDER ORDERS Sodium Chloride 10 ml 06/13/24 23:00 Sodium Chloride Flush 0.9% 10 Ml Syringe IVP Q8H DAMARI Terbutaline Sulfate 0.25 mg 06/13/24 22:56 Terbutaline 1 Mg/Ml Vial SUBQ .ONCE PRN Tachystole Objective Vital Signs/Intake & Output Intake & Output: Intake & Output 06/11/24 06/12/24 06/13/24 06/14/24 23:59 23:59 23:59 23:59 Intake Total 1400 / 1400 Balance 1400 / 1400 Weight (kg) 226 lb 15.983 oz Lab Results 06/13/24 23:13 06/13/24 23:13 Other Labs: Lab Results x24hrs 06/13/24 Range/Units 23:13 WBC 9.2 (4.8-10.8) x10^3/uL RBC 4.01 L (4.20-5.40) 10^6/uL Hgb 11.6 L (12.0-16.0) g/dL Hct 36.2 L (37.0-47.0) % MCV 90.3 (81.0-99.0) fL MCH 28.9 (27.0-31.0) pg MCHC 32.0 (32.0-36.0) g/dL RDW 14.6 (12.0-15.0) % Plt Count 253 (130-450) 10^3/uL MPV 9.8 (7.9-10.8) fL Neut # (Auto) 6.2 (1.5-6.6) 10^3/uL Lymph # (Auto) 2.1 (1.5-3.5) 10^3/uL Kay # (Auto) 0.9 (0.0-1.0) 10^3/uL Eos # (Auto) 0.0 (0.0-0.7) 10^3/uL Baso # (Auto) 0.0 (0.0-0.1) 10^3/uL Absolute Nucleated RBC 0.00 x10^3/uL Nucleated RBC % 0.0 /100WBC Sodium 136 (135-145) mmol/L Potassium 3.8 (3.5-4.5) mmol/L Chloride 106 (101-111) mmol/L Carbon Dioxide 21 (21-32) mmol/L Anion Gap 9.0 (6-13) BUN 12 (6-20) mg/dL Creatinine 0.5 L (0.6-1.3) mg/dL Estimated GFR (MDRD) 147 (>89) Glucose 95 (74-104) mg/dL Calcium 9.0 (8.5-10.3) mg/dL Total Bilirubin 0.3 (0.2-1.0) mg/dL AST 13 (10-42) IU/L ALT 15 (10-60) IU/L Alkaline Phosphatase 138 H (42-121) IU/L Total Protein 6.0 L (6.4-8.9) g/dL Albumin 3.3 (3.2-5.5) g/dL Globulin 2.7 (2.1-4.2) g/dL Albumin/Globulin Ratio 1.2 (1.0-2.2) Blood Type A POSITIVE Antibody Screen NEGATIVE
[2024-06-14] MEDS ORDERED: ROPIVACAINE 0.2% 200 MG/100 ML BAG EP ONE (11:18)
[2024-06-14] MEDS: ePHEDrine 50 MG/ML VIAL IVP PRN (12:00)
[2024-06-14] MEDS ORDERED: ePHEDrine 50 MG/ML VIAL IVP ONE (12:03)
[2024-06-14] MEDS: SODIUM CHLORIDE FLUSH 0.9% 10 ML SYRINGE IVP SCH (12:13)
[2024-06-14] MEDS ORDERED: ONDANSETRON 4 MG/2 ML VIAL IVP PRN (12:24)
[2024-06-14] MEDS ORDERED: NALOXONE 0.4 MG/ML VIAL IVP PRN ×2 (12:24→15:40)
[2024-06-14] MEDS ORDERED: ROPIVACAINE 0.2% 200 MG/100 ML BAG EP PRN (12:24)
[2024-06-14] MEDS ORDERED: METOCLOPRAMIDE 10 MG/2 ML VIAL IVP PRN (12:24)
[2024-06-14] MEDS ORDERED: diphenhydrAMINE INJ 50 MG/ML VIAL IVP PRN (12:24)
[2024-06-14] MEDS ORDERED: NALBUPHINE 10 MG/ML AMP IVP PRN (12:24)
--- NOTE | 2024-06-14 12:28 | ANESTHESIA PROCEDURE NOTE ---
Pre-Anesthesia VS, & Labs Diagnosis Surgical Diagnosis:: term labor pain Procedure Procedure: epidural for Vitals Vital Signs: Temp Pulse Resp BP Pulse Ox 37.0 C 84 17 125/65 99 06/14/24 09:56 06/14/24 09:56 06/14/24 09:56 06/14/24 09:56 06/14/24 08:35 NPO Last Fluid Intake: t/o morning Last Food Intake: breakfasr Is Patient ?: Yes Lab Results Current Lab Results: Laboratory Tests 06/13/24 23:13: WBC 9.2, RBC 4.01 L, Hgb 11.6 L, Hct 36.2 L, MCV 90.3, MCH 28.9, MCHC 32.0, RDW 14.6, Plt Count 253, MPV 9.8, Neut # (Auto) 6.2, Lymph # (Auto) 2.1, [place] # (Auto) 0.9, Eos # (Auto) 0.0, Baso # (Auto) 0.0, Absolute Nucleated RBC 0.00, Nucleated RBC % 0.0, Sodium 136, Potassium 3.8, Chloride 106, Carbon Dioxide 21, Anion Gap 9.0, BUN 12, Creatinine 0.5 L, Estimated GFR (MDRD) 147, Glucose 95, Calcium 9.0, Total Bilirubin 0.3, AST 13, ALT 15, Alkaline Phosphatase 138 H, Total Protein 6.0 L, Albumin 3.3, Globulin 2.7, Albumin/Globulin Ratio 1.2, Blood Type A POSITIVE, Antibody Screen NEGATIVE Lab results reviewed: Yes 06/13/24 23:13 06/13/24 23:13 Meds/Allgy Home Medications Ambulatory Orders Medication Instructions Recorded Confirmed vits 75-iron 28 mg-folic 1 pkg PO DAILY 12/06/23 06/14/24 acid 800 mcg-omega3 440 mg oral pack (One Daily ) blood sugar diagnostic #200 ea 04/24/24 06/11/24 lancets #200 ea 04/27/24 06/11/24 acyclovir 400 mg tablet 400 mg PO TID #180 tabs 05/01/24 06/14/24 blood-glucose meter #1 ea 05/22/24 06/11/24 blood sugar diagnostic #100 ea 05/26/24 06/11/24 Allergies Allergies Allergy/AdvReac Type Severity Reaction Status Date / Time No Known Drug Allergies Allergy Verified 06/11/24 09:35 PFSH Active Problems All Active Problems (Updated 06/05/24 @ 18:49 by CLAY Kinsey, JT) Sinusitis, bacterial (Acute) Elevated heart rate with elevated blood pressure without diagnosis of hypertension (Acute) Non-reactive NST (non-stress test) (Acute) Gestational diabetes mellitus (GDM) affecting second (Acute) Frequent urination (Acute) Vaginitis (Acute) Supervision of normal intrauterine in multigravida (Acute) Medical History Medical History H/O BRANDON positive for herpes simplex virus Surgical History Surgical History S/P foot surgery, left Hx of cholecystectomy Family History Family History Father Arthritis High blood pressure Diabetes Heart attack Mother High blood pressure Social History Social History Smoking Status: Never smoker Do you dip or chew tobacco?: No Patient requests smoking cessation consult: No Initiate information on smoking cessation: No Relationship: Physical Activity: Walking Level: Independent Do you feel safe in your home environment?: Yes Suffered physical, verbal, emotional, or financial abuse?: No History of Abuse: No Frequency: Occasional Substance Use: denies use Are you sexually active?: Yes POLST Patient has POLST: No Anesthesia Exam (Expanded) Exam General: Alert, Oriented x3, Cooperative and Mild distress Dental: WNL Neck Mobility: Normal Respiratory: Normal breath sounds and No respiratory distress Cardiovascular: Regular rate Neurological: Normal speech Mental/Cognitive Status: Alert/Oriented X3 and Normal for patient Cognitive Status: Within normal limits Exam Exam Vital Signs: Vital Signs x48h Temp Pulse Resp BP Pulse Ox 06/14/24 09:56 37.0 C 84 17 125/65 06/14/24 08:35 37.2 C 98 15 141/82 H 99 Plan Plan Anesthesia Type: Epidural Consent for Procedure(s) Verified and Reviewed: Yes Code Status: Attempt Resuscitation ASA Classification ASA classification: 2-Mild systemic disease Is this case an emergency?: No
--- NOTE | 2024-06-14 12:34 | PROVIDER PROGRESS NOTE ---
Current Medications Current Medications Current Medications: Current Medications Generic Name Dose Route Start Last Admin Trade Name Freq PRN Reason Stop Dose Admin Acetaminophen 1,000 mg 06/13/24 22:56 Acetaminophen 500 Mg Tablet PO Q8H PRN Mild Pain or Fever>38C(100.4F) Acyclovir 400 mg 06/14/24 08:00 06/14/24 08:26 Acyclovir 200 Mg Capsule PO 400 mg TID DAMARI Administration Diphenhydramine HCl 12.5 - 25 mg 06/14/24 12:24 Diphenhydramine Inj 50 Mg/Ml Vial IVP Q6HR PRN ITCHING Ephedrine Sulfate 5 mg 06/14/24 12:24 Ephedrine 50 Mg/Ml Vial IVP Q5M PRN For SBP<100;give until SBP>100 Fentanyl 50 mcg 06/13/24 22:56 Fentanyl 100 Mcg/2 Ml Vial IVP Q1H PRN Severe Pain (score 7-10) Hydralazine HCl 5 - 10 mg 06/13/24 22:56 Hydralazine Inj 20 Mg/Ml Vial IVP Q20M PRN SBP> or= 160 OR DBP> or= 110 Protocol Lactated Ringer's 500 mls @ 999 mls/hr 06/13/24 22:56 Lr IV PRN PRN Heart Rate Abnormalities Oxytocin/Sodium Chloride 500 mls @ 999 mls/hr 06/13/24 22:56 Pitocin/Sodium Chloride IV PRN PRN POST- HEMORR PREVENTION Protocol 999 MILLIUNIT/MIN Tranexamic Acid 1,000 mg in 100 mls @ 600 mls/hr 06/13/24 22:56 Tranexamic 1,000 Mg/100ml-Nacl IV Q30M PRN EBL >1200mL and within 3hr Lactated Ringer's 1,000 mls @ 125 mls/hr 06/13/24 23:00 06/14/24 07:45 Lr IV Infused .Q8H [facility] Infusion Ampicillin Sodium 1 gm/ Sodium 100 mls @ 100 mls/hr 06/14/24 09:00 06/14/24 09:45 Chloride IV 0 mls/hr Q4HR [facility] Infusion Lactated Ringer's 500 mls @ 999 mls/hr 06/14/24 12:24 Lr IV 06/14/24 12:54 ONCE ONE Ropivacaine 200 mg in 100 mls @ 0 mls/hr 06/14/24 12:24 Naropin 0.2% EP PRN PRN PAIN Protocol Per Protocol Labetalol HCl 20 - 80 mg 06/13/24 22:56 Labetalol 20 Mg/4 Ml Syringe IVP Q10M PRN SBP> or= 160 OR DBP> or= 110 Protocol Labetalol HCl 20 mg 06/13/24 22:56 Labetalol 20 Mg/4 Ml Syringe IVP .ONCE PRN SBP> or= 160 OR DBP> or= 110 Protocol Labetalol HCl 20 - 40 mg 06/13/24 22:56 Labetalol 20 Mg/4 Ml Syringe IVP Q10M PRN SBP> or= 160 OR DBP> or= 110 Protocol Lidocaine HCl 20 ml 06/13/24 22:56 Lidocaine 1% 20 Ml Mdv ID 06/16/24 22:57 .ONCE PRN PERINEAL REPAIR Methylergonovine Maleate 0.2 mg 06/13/24 22:56 Methylergonovine 0.2 Mg/Ml Vial IM .ONCE PRN Hemorrhage Metoclopramide HCl 10 mg 06/14/24 12:24 Metoclopramide 10 Mg/2 Ml Vial IVP Q6HR PRN Nausea / Vomiting Misoprostol 600 mcg 06/13/24 22:56 Misoprostol 200 Mcg Tablet BC .ONCE PRN Hemorrhage Misoprostol 800 mcg 06/13/24 22:56 Misoprostol 200 Mcg Tablet DE .ONCE PRN Hemorrhage Misoprostol 50 mcg 06/14/24 08:00 06/14/24 08:27 Misoprostol 100 Mcg Tablet BC 50 mcg Q4H DAMARI Administration Nalbuphine HCl 2.5 - 5 mg 06/14/24 12:24 Nalbuphine 10 Mg/Ml Amp IVP Q4H PRN ITCHING Naloxone HCl 0.1 mg 06/14/24 12:24 Naloxone 0.4 Mg/Ml Vial IVP Q2M PRN RR<8 Nifedipine 10 - 20 mg 06/13/24 22:56 Nifedipine 10 Mg Capsule PO Q20M PRN SBP> or= 160 OR DBP> or= 110 Protocol Ondansetron HCl 4 mg 06/13/24 22:56 Ondansetron Odt 4 Mg Tablet PO Q4HR PRN Nausea / Vomiting Ondansetron HCl 4 mg 06/14/24 12:24 Ondansetron 4 Mg/2 Ml Vial IVP Q6HR PRN Nausea / Vomiting Oxytocin 10 unit 06/13/24 22:56 Oxytocin 10 Unit/Ml Vial IM .ONCE PRN Step One if no IV access. Multivit/Folic Acid/Iron 1 tab 06/14/24 08:00 06/14/24 08:26 Vitamin Tablet PO 1 tab DAILYWM DAMARI Administration Sodium Chloride 10 ml 06/13/24 22:56 Sodium Chloride Flush 0.9% 10 Ml Syringe IVP PRN PRN NEEDED PER PROVIDER ORDERS Sodium Chloride 10 ml 06/13/24 23:00 06/14/24 12:13 Sodium Chloride Flush 0.9% 10 Ml Syringe IVP 10 ml Q8H DAMARI Administration Terbutaline Sulfate 0.25 mg 06/13/24 22:56 Terbutaline 1 Mg/Ml Vial SUBQ .ONCE PRN Tachystole Objective Vital Signs/Intake & Output Vital Signs: Vital Signs x48h Temp Pulse Resp BP Pulse Ox 06/14/24 09:56 37.0 C 84 17 125/65 06/14/24 08:35 37.2 C 98 15 141/82 H 99 Intake & Output: Intake & Output 06/11/24 06/12/24 06/13/24 06/14/24 23:59 23:59 23:59 23:59 Intake Total 1497 / 1497 Balance 1497 / 1497 Weight (kg) 102.965 kg Lab Results 06/13/24 23:13 06/13/24 23:13 Other Labs: Lab Results x24hrs 06/13/24 Range/Units 23:13 WBC 9.2 (4.8-10.8) x10^3/uL RBC 4.01 L (4.20-5.40) 10^6/uL Hgb 11.6 L (12.0-16.0) g/dL Hct 36.2 L (37.0-47.0) % MCV 90.3 (81.0-99.0) fL MCH 28.9 (27.0-31.0) pg MCHC 32.0 (32.0-36.0) g/dL RDW 14.6 (12.0-15.0) % Plt Count 253 (130-450) 10^3/uL MPV 9.8 (7.9-10.8) fL Neut # (Auto) 6.2 (1.5-6.6) 10^3/uL Lymph # (Auto) 2.1 (1.5-3.5) 10^3/uL [place] # (Auto) 0.9 (0.0-1.0) 10^3/uL Eos # (Auto) 0.0 (0.0-0.7) 10^3/uL Baso # (Auto) 0.0 (0.0-0.1) 10^3/uL Absolute Nucleated RBC 0.00 x10^3/uL Nucleated RBC % 0.0 /100WBC Sodium 136 (135-145) mmol/L Potassium 3.8 (3.5-4.5) mmol/L Chloride 106 (101-111) mmol/L Carbon Dioxide 21 (21-32) mmol/L Anion Gap 9.0 (6-13) BUN 12 (6-20) mg/dL Creatinine 0.5 L (0.6-1.3) mg/dL Estimated GFR (MDRD) 147 (>89) Glucose 95 (74-104) mg/dL Calcium 9.0 (8.5-10.3) mg/dL Total Bilirubin 0.3 (0.2-1.0) mg/dL AST 13 (10-42) IU/L ALT 15 (10-60) IU/L Alkaline Phosphatase 138 H (42-121) IU/L Total Protein 6.0 L (6.4-8.9) g/dL Albumin 3.3 (3.2-5.5) g/dL Globulin 2.7 (2.1-4.2) g/dL Albumin/Globulin Ratio 1.2 (1.0-2.2) Blood Type A POSITIVE Antibody Screen NEGATIVE Assessment/Plan Problem List (1) Hypertension affecting in third trimester: Impression: Patient is a at 39+1 wks, admitted to the [facility] for SROM and early labor. course reviewed and notable for GDMA1, GBS pos, and a mildly elevated BP in clinic (140/80 on 06/11). BPs since admission today have occasionally been mild to moderately elevated (150/93, 141/82), c/w possible gestational HTN vs preE. PreE labs normal, and plan to obtain urine prot/cr ratio after placement of charles post-epidural. At this time, the patient has no severe features and can continue care with CNM. I will cont to be available for consultation or assumption of care if any severe features or other concerns develop.
[2024-06-14 13:12] LABS: CREATININE,URINE 35.5 mg/dL; PROTEIN/CREATININE RATIO,URINE 0.3 (<=0.2)
[2024-06-14] MEDS: OXYTOCIN/SODIUM CHLORIDE 500 ML IV SCH (13:15)
[2024-06-14] MEDS ORDERED: ACYCLOVIR 200 MG CAPSULE PO SCH (14:00)
[2024-06-14] MEDS: LACTATED RINGERS 500 ML IV ONE (14:03)
[2024-06-14] MEDS ORDERED: OXYTOCIN/SODIUM CHLORIDE 500 ML IV PRN (15:40)
[2024-06-14] MEDS ORDERED: SIMETHICONE CHEW 80 MG TABLET PO PRN (15:40)
[2024-06-14] MEDS ORDERED: NIFEdipine 10 MG CAPSULE PO PRN (15:40)
[2024-06-14] MEDS ORDERED: hydrALAZINE INJ 20 MG/ML VIAL IVP PRN ×2 (15:40)
[2024-06-14] MEDS ORDERED: LABETALOL 20 MG/4 ML SYRINGE IVP PRN ×2 (15:40)
[2024-06-14] MEDS ORDERED: LABETALOL 5 MG/1 ML 20 ML MDV IVP PRN (15:40)
--- NOTE | 2024-06-14 15:45 | DELIVERY NOTE ---
Delivery Note Delivery Outcome Delivery Date: 06/14/24 Delivery Time: 14:58 Delivery Comments (Free Text/Narrative) Delivery Comments (Free Text/Narrative): This 29 -year-old, @39+1 weeks gestation by 7.0 week ultrasound/ LMP presented on 06/13/2024 at approximately 2300 following SROM 06/13/2024 @ 22:12 one hour prior to presentation. She allowed her body to go into spontaneous labor overnight and by this morning was 3/50/-2. She desired labor augmentation. She had several elevated BPs in labor, but BP was not persistently elevated. Just prior to delivery her catheterized urine PCR resulted at 0.3, resulting in a preeclampsia diagnosis. GBS positive , treated x 4 doses. MIsoprostol x1 dose, followed by OXYTOCIN MAXIMUM INFUSION OF 4mu/min. IUPC placed prior to initiating oxytocin as contractions were difficult to monitor FHR pattern demonstrated 155 baseline in a category I prior to second stage. Normal labor course. Epidural placed upon maternal request. She then progressed to complete @ 1453 with precipitous second stage. : Normal spontaneous vaginal delivery of a viable female on 06/14/2024 @ 1458. Nuchal cord x1, reduced. Compound delivery of left hand. The was placed on maternal abdomen, stimulated, dried and placed skin to skin. Apgars 8 & 8 @ 1 & 5 minutes. The umbilical cord was allowed to stop pulsating at which time it was doubly clamped by delivering provider and cut by FOB. 3VC. Cord blood was obtained. Fundal massage and gently cord traction applied for active management of the third stage, placenta delivered spontaneously and intact and appeared normal @ 1505. EBL 400cc. Placenta was not sent to pathology. Pitocin administered via IV for hemostasis and allowed to run freely. Uterine massage was performed until uterus was deemed firm. weight pending at this time. Inspection of the perineum noted intact perineum. No repair. Upon re-inspection the patient was hemostatic. Uterus again massaged and found to be firm. Needle and sponge counts were correct. Uterine fundus firm and there is no excessive bleeding. Tissues well approximated. Skin to skin initiated. Family bonding well. Both mother and baby are in stable condition.
--- NOTE | 2024-06-14 15:57 | PROVIDER PROGRESS NOTE ---
Labor Progress Note Labor Progress Note Labor Progress Note/Additional Text: Patient comfortable with epidural SVE 6.5cm. Discussed awaiting more time to allow cervical change or initiating pitocin to further augment. She desires to move toward delivery. Agreeable to IUPC placement for safe titration of pitocin. IUPC placed. and orders for oxytocin initiation and titration per unit protocol.
[2024-06-14] MEDS: ACETAMINOPHEN 500 MG TABLET PO PRN (16:13)
[2024-06-14] MEDS: IBUPROFEN 600 MG TABLET PO PRN (16:13)
[2024-06-15] MEDS: DOCUSATE SODIUM 100 MG CAPSULE PO SCH (00:15)
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
[2024-06-15 07:52] LABS: BASOPHILS # (AUTO) 0.1 10^3/uL (0.0-0.1); BASOPHILS % (AUTO) 0.5 %; EOSINOPHILS % (AUTO) 0.3 %; HCT - HEMATOCRIT 32.6 % (37.0-47.0); LYMPHOCYTES # (AUTO) 1.7 10^3/uL (1.5-3.5); MEAN CORPUSCULAR HEMOGLOBIN 30.2 pg (27.0-31.0); MEAN CORPUSCULAR HGB CONC 33.7 g/dL (32.0-36.0); MEAN CORPUSCULAR VOLUME 89.6 fL (81.0-99.0); MEAN PLATELET VOLUME 9.5 fL (7.9-10.8); MONOCYTES # (AUTO) 0.8 10^3/uL (0.0-1.0); MONOCYTES % (AUTO) 7.4 %; NEUTROPHILS # (AUTO) 8.4 10^3/uL (1.5-6.6); NEUTROPHILS % (AUTO) 76.3 %; PLT - PLATELET COUNT 221 10^3/uL (130-450); RED BLOOD COUNT 3.64 10^6/uL (4.20-5.40); RED CELL DISTRIBUTION WIDTH 15.1 % (12.0-15.0)
[2024-06-15 08:02] LABS: ALBUMIN/GLOBULIN RATIO 1.1 (1.0-2.2); BILIRUBIN,TOTAL 0.3 mg/dL (0.2-1.0); CALCIUM 8.4 mg/dL (8.5-10.3); CREATININE 0.5 mg/dL (0.6-1.3); POTASSIUM 4.2 mmol/L (3.5-4.5); TOTAL PROTEIN 5.7 g/dL (6.4-8.9)
[2024-06-15] MEDS: ACETAMINOPHEN 500 MG TABLET PO PRN (09:27)
--- NOTE | 2024-06-15 14:21 | PROVIDER PROGRESS NOTE ---
Subjective Prog Note Date Prog Note Date: 06/15/24 Prog Note Time: 12:00 Subjective Pt reports feeling: Improved Subjective: Subjective: Patient reports she is doing well. Comfortable WITHOUT pain management Lochia appropriate. Denies heavy bleeding. Ambulating. Pelvic and abdominal pain well-controlled. Tolerating oral intake. Diet: Regular. Voiding without difficulty. Passing flatus. Denies BM. Patient is bonding with baby in room Breast feeding going well. Denies feeling lightheaded, dizzy or excessively fatigued. Objective General: Alert, oriented, no apparent distress. Cardiovascular: 2+ edema to bilateral lower extremities Lungs: No increased work of breathing. Abdomen: Uterus firm. Below umbilicus. No guarding or rebound tenderness. Extremities: No pain on palpation. Distal pulses intact. Assessment and Plan day 1. 29 yo s/p on 06/14/2024 following SROM the night of 06/13/2024 GDM A1 Gestational Hypertension Preeclampsia without severe features. PPD #1, doing well. Wearing preeclampsia risk bracelet. Serum labs today unremarkable BP WNL since delivery No significant headaches, denies changes to vision, denies RUQ pain Declined discharge today, very happy with nursing care and desires their support until tomorrow. - Routine - Anticipate discharge tomorrow Current Medications Current Medications Current Medications: Current Medications Generic Name Dose Route Start Last Admin Trade Name Freq PRN Reason Stop Dose Admin Acetaminophen 1,000 mg 06/14/24 15:40 06/15/24 09:27 Acetaminophen 500 Mg Tablet PO 1,000 mg Q8HR PRN Administration Mild Pain or Fever>38C(100.4F) Acyclovir 400 mg 06/14/24 08:00 06/15/24 00:15 Acyclovir 200 Mg Capsule PO 400 mg TID DAMARI Administration Docusate Sodium 100 mg 06/14/24 21:00 06/15/24 09:27 Docusate Sodium 100 Mg Capsule PO 100 mg BID DAMARI Administration Ibuprofen 600 mg 06/14/24 15:40 06/15/24 04:21 Ibuprofen 600 Mg Tablet PO 600 mg Q6HR PRN Administration Moderate Pain (Level 4-6) Nifedipine 10 - 20 mg 06/13/24 22:56 Nifedipine 10 Mg Capsule PO Q20M PRN SBP> or= 160 OR DBP> or= 110 Protocol Nifedipine 10 - 20 mg 06/14/24 15:40 Nifedipine 10 Mg Capsule PO Q20M PRN SBP >=160 and/or DBP >=110 Protocol Ondansetron HCl 4 mg 06/13/24 22:56 Ondansetron Odt 4 Mg Tablet PO Q4HR PRN Nausea / Vomiting Multivit/Folic Acid/Iron 1 tab 06/14/24 08:00 06/15/24 09:26 Vitamin Tablet PO 1 tab DAILYWM DAMARI Administration Simethicone 80 mg 06/14/24 15:40 Simethicone Chew 80 Mg Tablet PO TID PRN Gas Sodium Chloride 10 ml 06/13/24 22:56 Sodium Chloride Flush 0.9% 10 Ml Syringe IVP PRN PRN NEEDED PER PROVIDER ORDERS Objective Vital Signs/Intake & Output Vital Signs: Vital Signs x48h Temp Pulse Resp BP 06/15/24 09:00 36.8 C 78 16 109/67 Intake & Output: Intake & Output 06/12/24 06/13/24 06/14/24 06/15/24 23:59 23:59 23:59 23:59 Intake Total 2545 / 2545 Output Total 650 / 650 Balance 1895 / 1895 Weight (kg) 226 lb 15.983 oz Lab Results 06/15/24 07:43 06/15/24 07:43 Other Labs: Lab Results x24hrs 06/15/24 Range/Units 07:43 WBC 11.0 H (4.8-10.8) x10^3/uL RBC 3.64 L (4.20-5.40) 10^6/uL Hgb 11.0 L (12.0-16.0) g/dL Hct 32.6 L (37.0-47.0) % MCV 89.6 (81.0-99.0) fL MCH 30.2 (27.0-31.0) pg MCHC 33.7 (32.0-36.0) g/dL RDW 15.1 H (12.0-15.0) % Plt Count 221 (130-450) 10^3/uL MPV 9.5 (7.9-10.8) fL Neut # (Auto) 8.4 H (1.5-6.6) 10^3/uL Lymph # (Auto) 1.7 (1.5-3.5) 10^3/uL [place] # (Auto) 0.8 (0.0-1.0) 10^3/uL Eos # (Auto) 0.0 (0.0-0.7) 10^3/uL Baso # (Auto) 0.1 (0.0-0.1) 10^3/uL Absolute Nucleated RBC 0.00 x10^3/uL Nucleated RBC % 0.0 /100WBC Sodium 136 (135-145) mmol/L Potassium 4.2 (3.5-4.5) mmol/L Chloride 108 (101-111) mmol/L Carbon Dioxide 22 (21-32) mmol/L Anion Gap 6.0 (6-13) BUN 8 (6-20) mg/dL Creatinine 0.5 L (0.6-1.3) mg/dL Estimated GFR (MDRD) 147 (>89) Glucose 94 (74-104) mg/dL Calcium 8.4 L (8.5-10.3) mg/dL Total Bilirubin 0.3 (0.2-1.0) mg/dL AST 16 (10-42) IU/L ALT 14 (10-60) IU/L Alkaline Phosphatase 135 H (42-121) IU/L Total Protein 5.7 L (6.4-8.9) g/dL Albumin 3.0 L (3.2-5.5) g/dL Globulin 2.7 (2.1-4.2) g/dL Albumin/Globulin Ratio 1.1 (1.0-2.2) Assessment/Plan Problem List (1) Hypertension affecting in third trimester:
[2024-06-16 09:31] VITALS: TEMP 98.1; O2SAT 100
[2024-06-16 15:14] VITALS: BP 131/79
--- NOTE | 2024-06-16 16:43 | Discharge Summary ---
Discharge Summary HPI History of Present Illness: Date of Admission: 06/14/2024 Date of Discharge: 06/16/2024 Diagnosis on Admission: 1. 29 yo @ 39+1 days gestation by 7+0 week ultrasound. 2. GBS + 3. FHR Category I 4. History of herpes simplex virus, without a current outbreak. Will continue suppressive therapy. 5. SROM Clear fluid Diagnosis on Discharge: 1. 29yo PPD#2 s/p TSVD viable female infant 2. 3. Normal recovery Brief History: She is a patient of [facility] who presented on in active labor. Cervix was 1/80/-3 and vertex with spontaneously ruptured membranes. She received 1 dose of 50mcg BC misoprostol for pre-induction cervical ripening. She received pitocin for augmentation of labor with a maximum infusion rate of 4mU/min. Epidural placed per maternal request. She spontaneously progressed to deliver a viable female infant on 06/14/2024 @ 1458. Perineum was found to be intact. Apgars were 8/8 at 1 and 5 minutes respectively. EBL 400 mL. She has been doing well in her course. She is ambulating and tolerating a regular diet. She is urinating without difficulty and her lochia is normal. Her pain is well controlled with oral medications. She will be discharged home today on day #2 with instructions to continue taking her vitamin while and to continue taking Ibuprofen and Tylenol over the counter as needed for pain management. She intends to follow up with myself at [facility] in 1 week for routine visit or sooner if needed. She has been given precautions to call if she has any worsening fevers, chills, abdominal pain, increased vaginal bleeding or foul smelling vaginal lochia. Physical Exam: Normocephalic, atraumatic. Heart RRR w/o M/G/R, lungs CTAB, abdomen soft and nontender with fundus firm at U, perineum intact, light lochia rubra, bilateral LE's no edema. Mood is good. ALLERGIES Allergies Allergy/AdvReac Type Severity Reaction Status Date / Time No Known Drug Allergies Allergy Verified 06/14/24 18:59 MEDICATIONS Ambulatory Orders Medication Instructions Recorded Confirmed vits 75-iron 28 mg-folic 1 pkg PO DAILY 12/06/23 06/14/24 acid 800 mcg-omega3 440 mg oral pack (One Daily ) PHYSICAL EXAM AT DISCHARGE Vital Signs: Vital Signs x48h Temp Pulse Resp BP 06/16/24 15:13 98.1 F 96 20 131/79 H LABS 06/15/24 07:43 06/15/24 07:43 Discharge Plan Discharge Patient Disposition: Home, Self Care Prescriptions: Continued One Daily 28-800-440 mg-mcg-mg combo pack 1 pkg PO DAILY Discontinued (DME) blood sugar diagnostic Strip See Rx Instructions .ROUTE .MEDSUPPLY Qty: 200 4RF Rx Instructions: 4 times per day via meter as directed (DME) lancets Misc See Rx Instructions .ROUTE .MEDSUPPLY Qty: 200 4RF Rx Instructions: 4 times per day as directed acyclovir 400 mg tablet 400 mg PO TID Qty: 180 2RF (DME) blood-glucose meter Kit See Rx Instructions .ROUTE .MEDSUPPLY Qty: 1 0RF Rx Instructions: 4 times per day as directed (DME) blood sugar diagnostic Strip See Rx Instructions .ROUTE .MEDSUPPLY Qty: 100 4RF Rx Instructions: 4 times per day via meter as directed Print Language: Amharic Patient Instructions: Vaginal After
--- NOTE | 2024-06-16 18:01 | Labor Flowsheet ---
Labor Flowsheet Datetime Report Generated by CPN: 06/16/2024 18:01 Datetime: 06/16/2024 15:07 VITAL SIGNS NBP Sys/Maria Luisa/Mean (mmHg): 131 : 79 : 92 Pulse: 101 Datetime: 06/14/2024 15:19 SpO2 (%): 100 Datetime: 06/14/2024 15:15 Stage of : Recovery Datetime: 06/14/2024 15:14 LaborFlag: Labor Datetime: 06/14/2024 15:05 Stage 2 Comments: placenta Datetime: 06/14/2024 14:57 STAGE 2 Pushing: Urge to Push Pushing Position: Pushing with Contractions Pushing Progress: Descent with Pushing Datetime: 06/14/2024 14:53 VAGINAL EXAM Dilatation (cm): 10.0 Effacement (%): 100 Station: 3 Exam by: Anish Smith CNM Datetime: 06/14/2024 14:51 Patient Care Comments: pt states she is very uncomfortable. RN suggest provider do a SVE. Pt agreea ble. Datetime: 06/14/2024 14:45 UTERINE ACTIVITY Monitor Mode: Internal Frequency (min): 2-3 Resting Tone IUP (mmHg): 25 Intensity IUP (mmHg): 60 [place] Units (mmHg): 140 Pitocin Checklist: No More than 1 Late Deceleration Occurred in Past 30 Minutes; No More than 2 Howard iable Decelerations > 60 Seconds in Duration and decreasing >60 bpm in 30 minutes; No More than 5 Snehal rine Contractions in 10 Minutes for any 20 Minute Interval; Uterus Palpates Soft between Contractions ; IUPC Resting Tone less than 25 mmHg ASSESSMENT A Monitor Mode: Telemetry FHR Baseline Rate : 155 Variability: Moderate 6-25 bpm Accelerations: None Decelerations: None Category: Category I Datetime: 06/14/2024 14:00 Respirations: 17 Temperature (C): 37.2 Temperature Route: Oral Pattern: Normal: <= 5 Contractions in 10 Minutes Comments: indeterminate baseline d/t accels between cxtns and cxtn frequency. unbable to detrmine c ategory. Datetime: 06/14/2024 13:45 Quality: Moderate Resting Tone (Palpate): Relaxed Contraction Comments: abd palpates soft inbetween cxtns MEDICATIONS Pitocin (milliunits): Increased to @ 4 Patient Position/Activity: Left Lateral Datetime: 06/14/2024 13:15 Medication Comments: Verified with SEdmundoDouglasiasen, RN Datetime: 06/14/2024 12:30 Monitor Interventions for UA: [place] Adjusted Duration (sec): 60-70 Datetime: 06/14/2024 12:29 Communication Comments: AVTAR Adame at bedside discussing IUPC placement and initation of oxy tocin. Pt agreeable. Datetime: 06/14/2024 12:20 Anesthesia Comments: VIMAL Soto at bedside cahnging epidural to continous. Datetime: 06/14/2024 12:16 Vital Sign Comments: C.Stobaugh, RN notifys C.Harris, MEMBERSHIP ADVISOR of second dose of ephedrine Magnesium/Antihypertensives: Ephedrine IV (mg) @ 5 Datetime: 06/14/2024 12:08 PAIN Pain Scale: 0 Datetime: 06/14/2024 11:46 Epidural Procedure: Loading Dose Datetime: 06/14/2024 11:29 ANESTHESIA Anesthesia Plans: Local Datetime: 06/14/2024 11:19 PROCEDURE TIME OUT Procedure Verify: Correct Patient Identity; Correct Side and Site are Marked; Accurate Procedure Co nsent Form; Agreement on Procedure to be Done; Correct Patient Position; Relevant Images and Results are Properly Labeled and Displayed Epidural Positioning: Sitting Datetime: 06/14/2024 11:13 Vaginal Bleeding: Normal Show Cervix, Consistency: Soft Cervix, Position: Midposition Datetime: 06/14/2024 11:06 I/O Interventions: Up to BR Datetime: 06/14/2024 10:49 Pain Assessment Comments: pt requesting epidural. C.simpins, MEMBERSHIP ADVISOR notified. Datetime: 06/14/2024 09:56 Pain Presence: Intermittent Pain Type: Cramping Pain Location: Abdomen Datetime: 06/14/2024 09:45 Antibiotics: Ampicillin IV 1 Gm Datetime: 06/14/2024 08:27 Cervical Ripening Agents: Cytotec @ Datetime: 06/14/2024 07:47 Membranes Ruptured Date/Time: 06/13/2024 22:12 Membranes Rupture Method: Spontaneous Datetime: 06/14/2024 06:24 FHR Baseline Changes: No Baseline Change Datetime: 06/14/2024 05:33 Hygiene: Underpad Changed; Peripad Changed Datetime: 06/14/2024 05:09 Amniotic Fluid Color: Clear Amniotic Fluid Amount: Large Amniotic Fluid Odor: Normal COMMUNICATION Communication: Report Given to @ Katrina Notification Reason: Uterine Activity Datetime: 06/13/2024 23:30 PATIENT CARE IV/Blood Work: IV Started Datetime: 06/13/2024 23:15 Membrane Status: Ruptured MATERNAL ASSESSMENT Level of Consciousness: Alert DTR's/Clonus: DTRs 1+ Headache: Denies Nausea/Vomiting: Denies RUQ Epigastric Pain: Denies TEACHING Instructional Method: Verbal; Patient Instructed Plan of Care: Plan of Care Discussed Unit Routine: [place] to Room; Call Berkowitz; Bed Pain Management: IV Narcotics; Epidural Medications: Antibiotics
== END 2024-06-16 18:00 | disposition home or self-care (01) | DRG 806 ==
LOC: WFO 22:36 → FBP 22:37
PROVIDERS: ADMIT Nurse Practitioner; ATTEND Nurse Practitioner
DX: A60.00 Herpesviral infection of urogenital system, unspecified; O98.52 Other viral diseases complicating childbirth; O24.420 Gestational diabetes mellitus in childbirth, diet controlled; Z79.899 Other long term (current) drug therapy; O62.3 Precipitate labor; Z37.0 Single live birth; O14.04 Mild to moderate pre-eclampsia, complicating childbirth; Z3A.39 39 weeks gestation of pregnancy; O99.824 Streptococcus B carrier state complicating childbirth